=== PATIENT | female | born 1990 | race African-American/Black ===

== ENCOUNTER 2017-07-09 21:28 | Emergency (ER) | payer BC, SELFPAY ==
[2017-07-10] MEDS ORDERED: Ibuprofen 200 MG TAB ONE (00:48)
[2017-07-10] MEDS ORDERED: AMOXicillin 250 MG CAP ONE (00:48)
== END 2017-07-10 00:55 | disposition home or self-care (01) ==
LOC: ERS 21:28
DX: J03.00 Acute streptococcal tonsillitis, unspecified (principal)
CPT/HCPCS: 87081; 87430; 99283

== ENCOUNTER 2017-11-30 03:00 | Emergency (ER) | payer BC, SELFPAY | END 2017-11-30 04:06 | disposition home or self-care (01) | LOC: ERS 03:00 | DX: S02.5XXA Fracture of tooth (traumatic), initial encounter for closed fracture (principal); X58.XXXA Exposure to other specified factors, initial encounter | CPT/HCPCS: 99282 ==

== ENCOUNTER 2018-03-02 18:01 | Emergency (ER) | payer BC, MEDICAID ==
[2018-03-02 18:33] LABS: Bilirubin Negative (Negative); Blood, Urine Small (Negative); Clarity CLOUDY (Clear); Glucose, Urine (Dipstick) Negative (Negative); Leukocyte Moderate (Negative); Nitrite Positive (Negative); Protein, Urine (Dipstick) Trace mg/dL (Neg-Trace); Specific Gravity, Urine 1.025 (1.002-1.036); pH, Urine 6.5 (5.0-9.0)
[2018-03-02 18:35] LABS: Bacteria/HPF 4+ HPF (None Seen); Pathc Cast-AUWi Flag 0.72 (0-2.49); Squamous Epithelial 0-3 HPF (0-3)
[2018-03-02 18:36] LABS: Hyaline Casts/LPF 0-3 HYALINE CAST LPF (0-3 Hyaline)
[2018-03-05 04:21] LABS: Chlamydia by PCR Not Detected (NotDetected); GC by PCR Not Detected (NotDetected)
== END 2018-03-02 20:19 | disposition home or self-care (01) ==
LOC: ERS 18:01
DX: B37.3 Candidiasis of vulva and vagina (principal); N30.00 Acute cystitis without hematuria
CPT/HCPCS: 81003; 81015; 87480; 87491; 87510; 87591; 87660; 99284

== ENCOUNTER 2018-12-17 06:34 | Emergency (ER) | payer MEDICAID, OTHER ==
[2018-12-17 07:11] LABS: #Eosinphils 0.1 thou/uL (0.0-0.7); #Lymphocytes 2.1 thou/uL (1.20-3.40); #Monocytes 0.6 thou/uL (0.11-0.59); #Neutrophils 7.3 thou/uL (1.40-6.50); %Basophils 0.5 % (0.0-1.0); %Eosinophils 0.5 % (0.0-10.0); %Lymphocytes 21.1 % (21.0-51.0); %Neutrophils 71.9 % (42.0-75.0); Hemoglobin 14.7 g/dL (12.0-16.0); Mean Corpuscular HGB CONC 33.5 g/dL (32.0-36.0); Mean Corpuscular Hemoglobin 28.9 pg (27.0-31.0); Mean Corpuscular Volume 86.1 fL (78.0-98.0); Mean Platelet Volume 9.9 fL (7.4-10.4); Platelet Count 140 thou/uL (130-400); RBC Distribution Width 12.4 % (11.5-14.5); White Blood Cell (WBC) Count 10.1 thou/uL (4.8-10.8)
[2018-12-17] MEDS ORDERED: Acetaminophen 500 MG TAB ONE (07:13)
[2018-12-17] MEDS ORDERED: Metoclopramide HCl 10 MG/2 ML VIAL ONE (07:13)
[2018-12-17] MEDS ORDERED: diphenhydrAMINE 50 MG/ML VIAL ONE (07:13)
[2018-12-17 07:20] LABS: Bilirubin Small (Negative); Blood, Urine Large (Negative); Clarity CLOUDY (Clear); Glucose, Urine (Dipstick) Negative (Negative); Leukocyte Small (Negative); Nitrite Negative (Negative); Protein, Urine (Dipstick) Trace mg/dL (Neg-Trace); Urobilinogen 0.2 mg/dL (0.2-1.0); pH, Urine 5.5 (5.0-9.0)
[2018-12-17 07:22] LABS: Bacteria/HPF None Seen HPF (None Seen); Hyaline Casts/LPF 4-6 HYALINE CAST LPF (0-3 Hyaline); Pathc Cast-AUWi Flag 1.08 (0-2.49); RBC/HPF 0-3 HPF (0-3)
[2018-12-17 07:24] LABS: Yeast-AUWi Flag 68.6 (0-25.0)
[2018-12-17 07:35] LABS: Yeast-All Forms None Seen HPF (None Seen)
[2018-12-17 07:35] LABS: ALT (SGPT) 11 U/L (8-55); AST (SGOT) 13 U/L (5-34); Albumin 4.2 g/dL (3.5-5.0); Alkaline Phosphatase 63 U/L (40-150); Anion Gap 11 mmol/L (10-20); BUN (Urea Nitrogen) 10 mg/dL (7.0-18.7); Bilirubin, Total 0.5 mg/dL (0.2-1.2); Calc. Creatinine Clearance 0 mL/min (70-130); Calcium 9.8 mg/dL (7.8-10.44); Carbon Dioxide 24 mmol/L (22-29); Chloride 105 mmol/L (98-107); Estimated GFR-MDRD Greater than 90; Globulin 3.2 g/dL (2.4-3.5); Glucose 90 mg/dL (70-105); Potassium 3.7 mmol/L (3.5-5.1); Protein, Total 7.4 g/dL (6.0-8.3); Sodium 136 mmol/L (136-145)
--- NOTE | 2018-12-17 08:55 | ULT ---
PELVIC ULTRASOUND: Transabdominal and endovaginal ultrasound of the pelvis performed. INDICATION: Vaginal bleeding. FINDINGS: There is a viable intrauterine . A pole is identified. The crown-rump length indicat es a 9-week 2-day gestation. Gestational sac measurements indicate an 8-week 6-day gestation. [place] ultrasound age is 9 weeks 0 days. Yolk sac is identified. The heart rate is recorded at 168 b.p.m. No evidence of subchorionic hemorrhage. No free fluid. Neither maternal ovary identified. IMPRESSION: A viable intrauterine with gestational age by ultrasound 9 weeks 0 days. The maternal ovar ies are not identified. POS: [facility]
== END 2018-12-17 08:57 | disposition home or self-care (01) ==
LOC: ERS 06:34
DX: O20.0 Threatened abortion (principal); Z3A.09 9 weeks gestation of pregnancy
CPT/HCPCS: 36415; 76856; 80053; 81003; 81015; 84702; 85025; 86900; 86901; 96365; 96375; J1200; J2765

== ENCOUNTER 2019-04-14 03:59 | Day surgery (SDC) | payer OTHER ==
[2019-04-14 04:35] VITALS: BP 110/65; TEMP 98.1; BMI 29.2
[2019-04-14] MEDS ORDERED: diphenhydrAMINE 25 MG CAP PO SCH (05:00)
--- NOTE | 2019-04-14 05:09 | PDOC.EVN ---
Event Note - Event Note Event Note: OBGYN Faculty History and Physical Attestation: Patient of the clinic Time: 0500 CC: N/V, "migraine", urinary frequency HPI: 28 yo at 25 weeks 6 days here for above complaints, HX migraines. Some n/v as well. No VB, no LOF. Some urinary frequency. Past HX Chlamydia and HSV. Please see full H&P by resident I have seen and evaluated the patient and agree with plan for : 1. IVF hydratioin 2. Benadryl and reglan for MARINO 3. CBC and CMP 4. cath UA 5. Vitals WNL
--- NOTE | 2019-04-14 05:11 | PDOC.LDHP ---
Labor and Delivery H&P Chief complaint: abdominal pain, other (Migraine and back pain) HPI: Pt is a at 25 wks and 6 days determined by US at 5wks. 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 She has also had a migraine that has been constant for the last two days with blurry vision, nausea, and vomiting x2 episodes today. She has no previous history of migraines. She tried to take Tylenol as well as sleep and eat but nothing has alleviated the migraine. She has had urinary urgency, frequency, and dysuria for the past 3 days. She says her urine has been intermittently dark but has had no odor to it. She said she has noticed swelling in her legs for the past 2 wks. She has had no bleeding or loss of fluid, but she did have spotting during the first 3 months of this . She says baby is moving normally. Current gestational age (weeks): 25 (6 days) Due date: 07/22/19 Dating criteria: first trimester ultrasound (@ 5 wks 5 days) Grav: 3 Para: 2 OB History Details: She has had 2 vaginal deliveries at term with no complications. This she had Chlamydia which was treated and she has a history of Herpes, but she has not had an outbreak. She said all her labs came back normal for this and she is seen at the [facility]. Current complications: none Abnormal US findings: No Past Medical History: None Current medications: pre-chio vitamins Previous surgical history: none Allergies/Adverse Reactions: Allergies Allergy/AdvReac Type Severity Reaction Status Date / Time No Known Allergies Allergy Unverified 04/14/19 04:26 Social history: none - Physical Exam General: other (She looks like she is in slight distress holding her head.) Heart: RRR Lungs: CTAB Abdomen: other (No CVA tenderness. Lower back pain that is para-spinal just above the iliac spine. Supra-pubic pain.) Extremeties: trace edema FHT: category 1, variability present [place] contractions every: None - Vaginal Exam cm dilated: 0 Effacement: 0% Station: -3 - OB Labs Blood type: unknown RH: unknown Antibody Screen: unknown HIV: unknown RPR: unknown HEPSAg: unknown 1 hour GCT: unknown GBS: unknown Urine drug screen: not done - Assessment @ 25w6d presents with migraine with blurry vision, nausea, and vomiting, low back and supra-pubic pain, and dysuria, urgency, and frequency. - Plan -: -Migraine with vision changes nausea & vomiting: Will check a CBC and BMP. Give 1L of LR as well as Reglan and Benadryl. -Dysuria, urgency, and frequency: Will obtain a Cath UA and evaluate for UTI. -Low back pain and supra-pubic pressure: Will r/o U.T.I. with UA & CBC, and then recommend abdominal support for gravid abdomen.
[2019-04-14] MEDS ORDERED: Metoclopramide HCl 10 MG TAB PO SCH (05:15)
[2019-04-14] MEDS ORDERED: Lactated Ringer's 1,000 ML IV SCH (05:15)
[2019-04-14] MEDS ORDERED: Metoclopramide HCl 10 MG/2 ML VIAL IVP SCH (05:45)
[2019-04-14] MEDS ORDERED: diphenhydrAMINE 50 MG/ML VIAL IVP SCH (05:45)
[2019-04-14] MEDS ORDERED: diphenhydrAMINE 25 MG in Sodium Chloride 0.9% 50 ML IVPB ONE (05:45)
[2019-04-14 06:07] LABS: ALT (SGPT) 15 U/L (8-55); AST (SGOT) 20 U/L (5-34); Albumin 3.3 g/dL (3.5-5.0); Alkaline Phosphatase 73 U/L (40-150); Anion Gap 13 mmol/L (10-20); BUN (Urea Nitrogen) 7 mg/dL (7.0-18.7); Bilirubin, Total 0.3 mg/dL (0.2-1.2); Calc. Creatinine Clearance 166 mL/min (70-130); Calcium 8.2 mg/dL (7.8-10.44); Carbon Dioxide 19 mmol/L (22-29); Chloride 107 mmol/L (98-107); Estimated GFR-MDRD Greater than 90; Glucose 84 mg/dL (70-105); Potassium 3.7 mmol/L (3.5-5.1); Protein, Total 6.3 g/dL (6.0-8.3); Sodium 135 mmol/L (136-145)
--- NOTE | 2019-04-14 06:22 | PDOC.EVN ---
Event Note - Event Note Event Note: CMP reviewed and determined to be WNL. Continue to monitor for resolution of headache. Urine studies and CBC still pending.
[2019-04-14 06:35] LABS: #Eosinphils 0.1 thou/uL (0.0-0.7); #Lymphocytes 1.7 thou/uL (1.20-3.40); #Monocytes 0.5 thou/uL (0.11-0.59); #Neutrophils 5.7 thou/uL (1.40-6.50); %Basophils 0.1 % (0.0-1.0); %Eosinophils 1.1 % (0.0-10.0); %Lymphocytes 21.2 % (21.0-51.0); %Monocytes 6.5 % (0.0-10.0); %Neutrophils 71.1 % (42.0-75.0); Hemoglobin 12.8 g/dL (12.0-16.0); Mean Corpuscular HGB CONC 33.5 g/dL (32.0-36.0); Mean Corpuscular Hemoglobin 29.9 pg (27.0-31.0); Mean Corpuscular Volume 89.4 fL (78.0-98.0); Mean Platelet Volume 9.7 fL (7.4-10.4); Platelet Count 114 thou/uL (130-400); Platelet Morphology Comment Appears Decreased; RBC Distribution Width 13.2 % (11.5-14.5); Red Blood Cell (RBC) Count 4.27 mill/uL (4.20-5.40)
[2019-04-14 07:27] LABS: Bilirubin Negative (Negative); Blood, Urine Negative (Negative); Glucose, Urine (Dipstick) Negative (Negative); Leukocyte Negative (Negative); Nitrite Negative (Negative); Protein, Urine (Dipstick) Negative (Neg-Trace); Urobilinogen 0.2 mg/dL (Less than 2)
[2019-04-14 07:28] LABS: Clarity Clear (Clear)
--- NOTE | 2019-04-14 08:07 | PDOC.EVN ---
Event Note - Event Note Event Note: Inicidental low mild platlets but over 100K...recheck in 2 weeks Awaiting UA
--- NOTE | 2019-04-14 08:23 | PDOC.OBTPN ---
FMR OB Triage PN:Sub - Interval History Chief Complaint: Abdominal pain, MARINO, urinary symptoms, Nausea Interval History: Mrs. Kline states her headache/nausea has resolved with meds/fluids. R OB Triage PN:Obj - Maternal Vital signs: BP: [110/65] HR: [80] RR: [99] Tmax: [98.1] Pox: [99]% on [room air] Wt: [ 77.1 kg] R OB Triage PN:Exam - Physical Exam General: NAD, awake, alert and oriented HEENT: EOMI Neck: supple, trachea midline Heart: RRR, normal S1/S2, pulses present General: CTAB, no respiratory distress, good air movement Abdomen: soft, gravid, bowel sound present Musculoskeletal: pulses present Neurological: cranial nerves II through XII intact, no focal deficit Skin: no rash Lymphatic: no unusual bruising or bleeding FMR OB Triage PN:Data - Labs Lab results: Laboratory Results - last 24 hr 04/14/19 04/14/19 04/14/19 05:30 05:30 06:23 WBC 8.0 RBC 4.27 Hgb 12.8 Hct 38.1 MCV 89.4 MCH 29.9 MCHC 33.5 RDW 13.2 Plt Count 114 L MPV 9.7 Neutrophils % 71.1 Lymphocytes % 21.2 Monocytes % 6.5 Eosinophils % 1.1 Basophils % 0.1 Neutrophils # 5.7 Lymphocytes # 1.7 Monocytes # 0.5 Eosinophils # 0.1 Basophils # 0.0 Plt Morphology Comment Appears Decreased L Sodium 135 L Potassium 3.7 Chloride 107 Carbon Dioxide 19 L Anion Gap 13 BUN 7 Creatinine 0.61 Estimated GFR (MDRD) Greater than 90 Glucose 84 Calcium 8.2 Total Bilirubin 0.3 AST 20 ALT 15 Alkaline Phosphatase 73 Serum Total Protein 6.3 Albumin 3.3 L Globulin 3.0 Albumin/Globulin Ratio 1.1 L Urine Color Yellow Urine Clarity Clear Urine pH 7.0 Ur Specific Jenner 1.020 Urine Protein Negative Urine Glucose (UA) Negative Urine Ketones Negative Urine Blood Negative Urine Nitrite Negative Urine Bilirubin Negative Urine Urobilinogen 0.2 Ur Leukocyte Esterase Negative R OB Triage PN:A/P - Problem List (1) Headache Status: Acute Code(s): R51 - HEADACHE (2) Nausea Status: Acute Code(s): R11.0 - NAUSEA (3) Urinary tract infection symptoms Status: Acute Code(s): R39.9 - UNSP SYMPTOMS AND SIGNS INVOLVING THE GENITOURINARY SYSTEM (4) Pelvic pain Status: Acute Code(s): R10.2 - PELVIC AND PERINEAL PAIN Disposition: # Headache/Nausea Resolved with 1 L fluids, reglan, and benadryl. Will d/c with reglan and benadryl. No focal deficits. # Thrombocytopenia Incidently found. Platelets 114. - follow up with clinic in 1-2 weeks for repeat. # Pelvic Pain - likely secondary to round ligament pain # Urinary Symptoms UA negative. Will not treat. Dispo: discharge Discussion: Date/Time: 04/14/19820 This H&P was discussed with [] and [] who agree with the above documentation and plan.
--- NOTE | 2019-04-14 08:31 | PDOC.EVN ---
Event Note - Event Note Event Note: Patient with incidental thrombocytopenia with platelets 114 on CBC today. CMP and UA WNL. Will notify PNC to repeat CBC on 04/29 at patient's next appointment. Patient's headache improved with reglan and benadryl. Plan for d/c home. Diane Sosa, DO PGY-3
--- NOTE | 2019-04-14 17:29 | DIS ---
DATE OF ADMISSION: 04/14/2019 DATE OF DISCHARGE: 04/14/2019 RESIDENT: Olman Warner DO DISCHARGE ATTENDING: Aaron Bass MD CONSULTS: None. PROCEDURES: None. PRIMARY DIAGNOSES: 1. Migraine. 2. Nausea. 3. Urinary symptoms. 4. Low back pain and suprapubic pressure. DISCHARGE MEDICATIONS: 1. vitamins 1 tablet p.o. daily. 2. Acetaminophen 650 p.o. q.6 p.r.n. 3. Benadryl 25 mg p.o. q.6. 4. Metoclopramide 10 mg p.o. q.i.d. HPI/HOSPITAL COURSE: Ms. Curtis Kline is a 28-year-old G3, P2 at 25 weeks and 6 days, determined by ultrasound of 5 weeks. 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 At the same time, she had a migraine that has been consulted for the last 2 days with blurry vision, nausea, and vomiting x2 episodes. She had no previous history of migraines. She tried to take Tylenol for migraines, but this did not alleviate the pain. She also stated that she has increased urinary frequency, urgency, and dysuria for the last 3 days. Her urine had no odor, but was intermittently dark. She also noted she had swelling in her legs for the past 2 weeks. She denied bleeding, loss of fluid. She states that the baby is moving well. She was monitored through the morning and given 1 L of fluids, Reglan, and Benadryl to see if this would alleviate her symptoms. By discharge, her headache and nausea had improved to the point she felt comfortable, being discharged. She also had a UA due to her urinary symptoms, which revealed no bacteria, urinary leukocyte estrace, blood, or nitrites. CBC within normal limits other than an incidental findings of platelet count of 114. We did not have her recent labs on hand, so we encouraged her to follow up with clinic in 1 to 2 weeks, 3 drop for her thrombocytopenia. She is also experiencing some pelvic pain, which is likely secondary to round ligament pain. She denies any vaginal discharge, vaginal bleeding, or her water breaking. DISCHARGE INSTRUCTIONS: 1. Location: [facility]. 2. Diet: No restrictions. 3. Activity: Ad hayden. 4. Followup: With clinic in 1 to 2 weeks for repeat CBC checking on thrombocytopenia. Job ID: [id number]
== END 2019-04-14 08:39 | disposition home or self-care (01) ==
LOC: L&D/OP 03:59
PROVIDERS: ATTEND Obstetrics & Gynecology
DX: O99.352 Diseases of the nervous system complicating pregnancy, second trimester (principal); G43.909 Migraine, unspecified, not intractable, without status migrainosus; O21.2 Late vomiting of pregnancy; O99.89 Other specified diseases and conditions complicating pregnancy, childbirth and the puerperium; R10.2 Pelvic and perineal pain; M54.5 Low back pain; R30.0 Dysuria; R35.0 Frequency of micturition; R39.15 Urgency of urination; O99.112 Other diseases of the blood and blood-forming organs and certain disorders involving the immune mechanism complicating pregnancy, second trimester; D69.6 Thrombocytopenia, unspecified; Z3A.25 25 weeks gestation of pregnancy
CPT/HCPCS: 36415; 51701; 80053; 81003; 85025; 96360; 96361; 96375; 99283; J1200; J2765; J8597

== ENCOUNTER 2019-04-17 00:27 | Day surgery (SDC) | payer OTHER ==
[2019-04-17 01:03] VITALS: BMI 29.2
--- NOTE | 2019-04-17 01:23 | PDOC.LDHP ---
Labor and Delivery H&P Chief complaint: contractions, other (vomiting) HPI: Ms. Kline is a 28yo who presents to L&D for nausea, vomiting, headache, and painful contractions. Her symptoms began this morning with mild cramping/contractions in the lower abdomen that were not particularly painful. She thought they were Bailey-Nunes so she took a bath and tried to hydrate with water. She states that she began feeling nauseous mid morning and also developed a headache. At noon she began vomiting, took Tylenol for her headache and took a nap. At 5pm she was awakened by painful contractions and more nausea and vomiting. She monitored her contractions at home and around 8pm began noting that they were coming every 3-4 minutes. She decided to come to the hospital later in the evening due to worsening pain with contractions and inability to keep water down. She has noted discharge and states that sometimes it feels like she is "peeing herself", but it is not enough to necessitate a pad. She denies scotoma, photospia, RUQ pain, numbness, tingling, syncope, vaginal bleeding, or gush of fluid. Current gestational age (weeks): 26 (2 days) Due date: 07/22/19 Dating criteria: first trimester ultrasound (@5.5) Grav: 3 Para: 2 OB History Details: She has had 2 w/o complications. This has been complicated by chlamydia for which she has been treated. She has a history of herpes, but denies current or recent outbreak. Current complications: none Past Medical History: None Current medications: pre-chio vitamins Allergies/Adverse Reactions: Allergies Allergy/AdvReac Type Severity Reaction Status Date / Time No Known Allergies Allergy Verified 04/17/19 00:57 - Physical Exam Vital signs reviewed and normal: yes (BP 108/68, HR 86, RR 18, Temp 97.9F) General: NAD, resting Heart: RRR Lungs: CTAB Abdomen: other (Tender across lower abdomen) Extremeties: no edema FHT: category 1 (FHTs in the 150s-170s, good variability, no decelerations.) [place] contractions every: 5-6 min - Vaginal Exam cm dilated: 0 Effacement: 0% - OB Labs Blood type: unknown RH: unknown Antibody Screen: unknown HIV: unknown RPR: unknown HEPSAg: unknown Urine drug screen: not done - Assessment 1. 28yof with nausea, vomiting, headache and contractions, suspect gastroenteritis. - Plan -: - Rule out labor: FFN, Amnisure, and US cervical length. Reassured by cervical check of 0cm. - Increased vaginal discharge: VP3 ordered - Nausea/Vomiting: IV Zofran ordered - tachycardia: Ordered IV NS 1L bolus. Will monitor patient for closely for FHTs, contractions, until she can tolerate PO fluids. Addendum - Attending - Attending Attestation Date/Time: 04/17/19 1354 I personally evaluated the patient and discussed the management with Dr. Kaur. I agree with the History, Examination, Assessment and Plan documented above.
[2019-04-17] MEDS ORDERED: hydrALAZINE 20 MG/ML VIAL SLOW IVP PRN (02:04)
[2019-04-17] MEDS ORDERED: Ondansetron PF 4 MG/2 ML Vial IVP PRN (02:21)
[2019-04-17] MEDS ORDERED: Sodium Chloride 0.9% 1,000 ML IV SCH ×3 (02:30→03:00)
[2019-04-17 02:40] LABS: Amnisure Test No Membranes Rupture (No Rupture)
[2019-04-17 02:41] LABS: Amnisure Internal Control QC ACCEPTABLE (ACCEPTABLE)
[2019-04-17 02:57] LABS: FFN Internal QC Analyzer PASS (PASS); FFN Internal QC Cassette PASS (PASS); Fetal Fibronectin Negative (Negative)
--- NOTE | 2019-04-17 03:02 | PDOC.EVN ---
Event Note - Event Note Event Note: Per US tech - cervical length is 3.2cm with no funneling. FFN negative, amnisure negative. Pt getting 1L fluid bolus at this time. VP3 pending. Will monitor for improvement in ctx Addendum - Attending - Attending Attestation Date/Time: 04/17/19 0711 I personally evaluated the patient and discussed the management with Dr. Conn. I agree with the Assessment and Plan documented above.
--- NOTE | 2019-04-17 03:58 | PDOC.EVN ---
Event Note - Event Note Event Note: Patient reports she is feeling better, no longer nauseous or having contractions. The FFN and amnisure were both negative, cervix is 3.2cm without funneling. VP3 pending. FHTs 150s moderate variability. F/u PNC appt scheduled. d/c home Addendum - Attending - Attending Attestation Date/Time: 04/17/19 0712 I personally evaluated the patient and discussed the management with Dr. Kaur. I agree with the Assessment and Plan documented above.
--- NOTE | 2019-04-17 07:33 | ULT ---
OB ULTRASOUND LIMITED: INDICATION: Evaluation of cervical length. FINDINGS: Redemonstrated cervical canal is approximately 3.2 cm in length. The fetus is demonstrated in a aram ch lie. cardiac activity is documented at 160 b.p.m. IMPRESSION: Live intrauterine gestation. Cervical length of 3.2 cm. POS: [facility]
== END 2019-04-17 04:33 | disposition home or self-care (01) ==
LOC: L&D/OP 00:27
PROVIDERS: ATTEND Obstetrics & Gynecology
DX: O21.2 Late vomiting of pregnancy (principal); O99.89 Other specified diseases and conditions complicating pregnancy, childbirth and the puerperium; R51 Headache; R10.30 Lower abdominal pain, unspecified; N89.8 Other specified noninflammatory disorders of vagina; O36.8320 Maternal care for abnormalities of the fetal heart rate or rhythm, second trimester, not applicable or unspecified; Z3A.26 26 weeks gestation of pregnancy
CPT/HCPCS: 76815; 82731; 84112; 87480; 87510; 87660; J2405

== ENCOUNTER 2019-05-24 09:58 | Day surgery (SDC) | payer OTHER ==
[2019-05-24] MEDS ORDERED: hydrALAZINE 20 MG/ML VIAL SLOW IVP PRN (10:43)
[2019-05-24 10:47] VITALS: BMI 25.3
--- NOTE | 2019-05-24 10:47 | PDOC.FPROB ---
FMR OB H&P: HPI - History of Present Illness Chief Complaint: Spotting, back pain Indentification: 28 year old at 32.3 wks History of Present Illness: 28 year old at 32.3 wks bu 6.3wk US presents for spotting 3x intermittently. She notes it occurred while wiping once on Saturday and twice today. Endorses usual mucous vaginal discharge, no change in consistency. Intermittant contractions, good movement, no LOF. States she had intercourse with the FOB last Saturday and had not had any intercourse for months prior. She did not use protection and unsure of STD status of partner. She also endorses lower back pressure, partially relieved with Tylenol. Also endorses intermittant MARINO''s throughout located behind the eyes, relieved with bendryl and Tylenol. Primary Care Physician: BEN Samuel FMR OB H&P: Current - Care : 6 Para: 2031 Gestational age: 32.3 Due date: 07/16/19 Dating Criteria: US at 6.3 Course/Complications: Chlamydia during first trimester, HECTOR negative. - OB Labs Blood type: O RH: positive Antibody Screen: negative HIV: negative RPR: negative HepBsAg: negative Rubella: immune Quad screen: negative Gonorrhea: negative Chlamydia: negative 1 hour gtt: passed H&H: 14.3/42.5 Platelets: 153 FMR OB H&P: History - Past Medical History PMH: No significant PMHx outside of . - OB History OB History: . 2 spontaneous abortions, 1 induced. 2 Living children ages 11 and 8 born at 39 and 40 wks respectively via without complications or NICU stay. 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 Chlamydia during first trimester of this . HECTOR negative. Unsure of partner's status. - Surgical History Sx History: None - Social History Social History: No EtOH, Drugs, or tob. - Family History Family History: Aunt with Sickle Cell disease. Mom with trait. Personally negative for trait. No known family history of complications. FMR OB H&P: Medications - Current Home Medications: Medication Instructions Recorded Confirmed Type Acetaminophen [Tylenol Regular 650 mg PO Q6HR PRN 04/14/19 04/17/19 History Strength] 21/Iron Fu/Folic Acid 1 tablet PO DAILY 04/14/19 04/17/19 History [ Complete Caplet] Metronidazole [metroNIDAZOLE] 500 mg PO Q12HR #14 tab 04/17/19 Rx Allergies/Adverse Reactions: Allergies Allergy/AdvReac Type Severity Reaction Status Date / Time No Known Allergies Allergy Verified 04/17/19 00:57 FMR OB H&P: ROS - Review of Systems General: denies: fever/chills, night sweats, fatigue, recent trauma Eyes: denies: eye pain, vision changes, double vision ENT: denies: nasal congestion, rhinorrhea, sinus pain/pressure, sore throat Cardiovascular: reports: edema (minimal, for past week, worse at end of day.). denies: chest pain, palpitation Respiratory: denies: cough, congestion, shortness of breath Gastrointestinal: denies: abdominal pain, bloating, cramping, nausea, vomiting Genitourinary (Female): reports: vaginal discharge (normal mucous), vaginal bleeding (minimal spotting per HPI), contractions (infrequent), vaginal pressure. denies: incontinence, dysuria, hematuria, vaginal pain Musculoskeletal: reports: pain (lower back pain) Neurologic: denies: numbness Integumentary: denies: rash FMR OB H&P: Vital Signs - Heart Tones Baseline: 160 Variability: moderate Acceleration: present Deceleration: absent Category: category 1 (reactive) [place] contractions every: infrequent FMR OB H&P: Physical Exam - Physical Exam General: NAD, awake, alert and oriented HEENT: MMM, no scleral icterus Neck: supple, trachea midline Chest: non-tender to palpation Heart: RRR, normal S1/S2, no murmurs/rubs/gallops, pulses present, no edema General: CTAB, no respiratory distress, good air movement, no rales/rhonchi, no wheezing Abdomen: soft, gravid, non-tender, bowel sound present Neurological: sensation to pain,touch and proprioception grossly normal, no focal deficit Skin: no rash FMR OB H&P: A/P - Problem List (1) Vaginal spotting Current Visit: Yes Status: Acute Code(s): N93.9 - ABNORMAL UTERINE AND VAGINAL BLEEDING, UNSPECIFIED (2) Back pain affecting in third trimester Current Visit: Yes Status: Acute Code(s): O99.89 - OTH DISEASES AND CONDITIONS COMPL PREG/CHLDBRTH; M54.9 - DORSALGIA, UNSPECIFIED (3) Intrauterine Current Visit: Yes Status: Acute Code(s): Z34.90 - ENCNTR FOR SUPRVSN OF NORMAL , UNSP, UNSP TRIMESTER Disposition: Pt not in labor. Reactive strip. UA clean. Will obtain G/C and Trich testing and recommend f/u for routine care at [facility]. Will notify pt if any abnormal results on swab. Labor precautions given. Discussion: 28yo AAF @ 32.3 by 6.3wk US presenting with vaginal spotting and lower back pain 1. Vaginal spotting - H/o chlamydia in first trimester, HECTOR negative - Recently sexually active with FOB last Saturday, no intercourse in months prior, unsure of STD status of partner - Dried blood with wiping, no LOF, consistent contractions, or changes in vaginal discharge - Good movement, strip reactive - UA negative. - Likely 2/2 vaginal trauma from intercourse vs normal third trimester spotting. Will check G/C and Trich per patient concern. 2. Lower back pain - Present for past week or more - Tylenol with minimal relief - No conctrations or loss of fluid - Recommend heating pad and Tylenol for pain relief 3. IUP - 32.3 wks by 6.3wk US - Continue routine care with [facility] - Dr. Samuel .
[2019-05-24 11:26] LABS: Bilirubin Negative (Negative); Blood, Urine Negative (Negative); Glucose, Urine (Dipstick) Negative (Negative); Leukocyte Negative (Negative); Nitrite Negative (Negative); Protein, Urine (Dipstick) Negative (Neg-Trace); Urobilinogen 0.2 mg/dL (Less than 2)
[2019-05-24 11:30] LABS: Clarity Clear (Clear)
[2019-05-24 14:07] LABS: Reference Lab Name LABCORP
[2019-05-24 14:08] LABS: Ref Lab Test Ordered CT/GC/TRICH
== END 2019-05-24 13:40 | disposition home health service (06) ==
LOC: L&D/OP 09:58
PROVIDERS: ATTEND Student in an Organized Health Care Education/Training Program
DX: O26.853 Spotting complicating pregnancy, third trimester (principal); O99.89 Other specified diseases and conditions complicating pregnancy, childbirth and the puerperium; M54.5 Low back pain; Z3A.32 32 weeks gestation of pregnancy; Z87.59 Personal history of other complications of pregnancy, childbirth and the puerperium
CPT/HCPCS: 81003

== ENCOUNTER 2019-06-03 17:22 | Observation (INO) | payer OTHER ==
[2019-06-03 18:32] VITALS: BMI 31.8
[2019-06-03] MEDS ORDERED: Ondansetron PF 4 MG/2 ML Vial IVP PRN (19:31)
[2019-06-03] MEDS ORDERED: Calcium Gluc 4.6 MEQ/10 ML (100 MG/ML) SLOW IVP PRN (19:31)
[2019-06-03] MEDS ORDERED: Ondansetron ODT 4 MG TAB PO PRN (19:31)
[2019-06-03] MEDS: Famotidine 20 MG TAB PO SCH (20:11)
[2019-06-03] MEDS: Famotidine/PF 20 mg/2ml Vial SLOW IVP SCH (20:12)
[2019-06-03] MEDS: Acetaminophen 325 MG TAB PO PRN (20:12)
[2019-06-03 20:31] LABS: #Eosinphils 0.1 thou/uL (0.0-0.7); #Lymphocytes 2.9 thou/uL (1.20-3.40); #Monocytes 0.7 thou/uL (0.11-0.59); #Neutrophils 10.4 thou/uL (1.40-6.50); %Basophils 0.1 % (0.0-1.0); %Eosinophils 0.5 % (0.0-10.0); %Lymphocytes 20.5 % (21.0-51.0); %Neutrophils 73.9 % (42.0-75.0); Hemoglobin 13.6 g/dL (12.0-16.0); Mean Corpuscular HGB CONC 34.5 g/dL (32.0-36.0); Mean Corpuscular Hemoglobin 30.4 pg (27.0-31.0); Mean Corpuscular Volume 88.3 fL (78.0-98.0); Mean Platelet Volume 9.7 fL (7.4-10.4); Platelet Count 121 thou/uL (130-400); RBC Distribution Width 12.9 % (11.5-14.5); Red Blood Cell (RBC) Count 4.47 mill/uL (4.20-5.40)
[2019-06-03 20:55] LABS: ALT (SGPT) 21 U/L (8-55); AST (SGOT) 30 U/L (5-34); Albumin 3.3 g/dL (3.5-5.0); Alkaline Phosphatase 122 U/L (40-150); Anion Gap 14 mmol/L (10-20); BUN (Urea Nitrogen) 11 mg/dL (7.0-18.7); Bilirubin, Total 0.3 mg/dL (0.2-1.2); Calc. Creatinine Clearance 167 mL/min (70-130); Calcium 8.9 mg/dL (7.8-10.44); Carbon Dioxide 20 mmol/L (22-29); Chloride 107 mmol/L (98-107); Estimated GFR-MDRD Greater than 90; Globulin 2.7 g/dL (2.4-3.5); Glucose 83 mg/dL (70-105); Potassium 3.6 mmol/L (3.5-5.1); Sodium 137 mmol/L (136-145); Uric Acid 5.1 mg/dL (2.6-6.0)
--- NOTE | 2019-06-03 21:28 | PDOC.FPROB ---
FMR OB H&P: HPI - History of Present Illness Chief Complaint: elevated BP's, SOB, swelling History of Present Illness: 28 y/o at 34.0 wks presents via direct admit from Dr. Corbin at [facility], for Pre-Eclampsia workup. The pt had elevated BP's, edema in her hands and feet, and SOB worse with exertion of walking about 50 feet for the past week. She states that at 28 wks she was worked up and found to have low platelets, when she was evaluated for migraine headaches and contractions. The pt had an ultrasound yesterday that showed poyhydramnios. Today she c/o cramping/contraction like pain that is present over her lower abdomen. Pt denies any LOF, vaginal bleeding. Pt c/o yellow vaginal discharge and some vaginal spotting present X1 week ago, that is currently not present. Pt if feeling the baby move "constantly." Whe she is SO she also becomes dizzy, denies any LOC. c/o heart burn and nausea, denies any v/d. c/o MARINO 7/10 in intensity behind the right eye. Denies current scotomas, but states she has had these before. Primary Care Physician: at [facility] FMR OB H&P: Current - Care : 6 Para: 2 Gestational age: 34.0 Course/Complications: elevated BP's FMR OB H&P: History - Past Medical History PMH: migraines - OB History OB History: X2 miscarriage X1 @28 wks during this pt was found to have low platelets, when worked up for migraines and contractions. - Social History Social History: denies tobacco, etoh or drug use. FMR OB H&P: Medications - Current Home Medications: Medication Instructions Recorded Confirmed Type Acetaminophen [Tylenol Regular 650 mg PO Q6HR PRN 04/14/19 04/17/19 History Strength] 21/Iron Fu/Folic Acid 1 tablet PO DAILY 04/14/19 04/17/19 History [ Complete Caplet] Metronidazole [metroNIDAZOLE] 500 mg PO Q12HR #14 tab 04/17/19 Rx Allergies/Adverse Reactions: Allergies Allergy/AdvReac Type Severity Reaction Status Date / Time No Known Allergies Allergy Verified 04/17/19 00:57 FMR OB H&P: ROS - Review of Systems General: reports: fatigue. denies: fever/chills, weight/appetite/sleep changes Eyes: reports: eye pain, vision changes, scotomas. denies: double vision ENT: denies: nasal congestion, rhinorrhea Cardiovascular: reports: edema. denies: chest pain, palpitation Respiratory: reports: shortness of breath, exercise intolerance. denies: cough Gastrointestinal: reports: abdominal pain, cramping, nausea, constipation. denies: vomiting, diarrhea Genitourinary (Female): reports: vaginal discharge, vaginal bleeding, contractions. denies: incontinence Musculoskeletal: reports: swelling Neurologic: reports: weakness, headache. denies: syncope, seizures Hematologic/Lymphatic: denies: prolonged or excessive bleeding FMR OB H&P: Vital Signs - Maternal Vital signs: Vital Signs - First Documented Temp Pulse Resp BP Pulse Ox 97.9 F 80 18 126/76 98 06/03/19 17:45 06/03/19 17:45 06/03/19 17:45 06/03/19 17:45 06/03/19 17:45 FMR OB H&P: Physical Exam - Physical Exam General: NAD, awake, alert and oriented HEENT: normocephalic and atraumatic, PERRLA, EOMI, MMM, conjunctiva clear, no scleral icterus, grossly normal vision, grossly normal hearing, oropharynx clear , good dention Neck: supple, FROM, trachea midline, no LAD, no JVD Chest: non-tender to palpation, no lesions Heart: RRR, normal S1/S2, no murmurs/rubs/gallops, pulses present Deviation from normal: trace peripheral edema of bilateral hands and feet General: CTAB, no respiratory distress, good air movement, no rales/rhonchi, no wheezing, no retractions Abdomen: soft, gravid, bowel sound present Deviation from normal: Diffuse abdominal tendernes Musculoskeletal: normal gait and station, pulses present, FROM in all four extremities Neurological: cranial nerves II through XII intact, sensation to pain,touch and proprioception grossly normal, DTR +2, no clonus, no tremor, no focal deficit Skin: no rash, good tugor, capillary refill <2 seconds, no jaundice Lymphatic: no unusual bruising or bleeding, no purpura, no petechia Psychiatric: intact recent and remote memory, good judgement and insight, normal mood and affect FMR OB H&P: Results - Labs Lab results: Laboratory Results - last 24 hr 06/03/19 06/03/19 06/03/19 20:20 20:20 20:20 WBC 14.0 H RBC 4.47 Hgb 13.6 Hct 39.5 MCV 88.3 MCH 30.4 MCHC 34.5 RDW 12.9 Plt Count 121 L MPV 9.7 Neutrophils % 73.9 Lymphocytes % 20.5 L Monocytes % 5.0 Eosinophils % 0.5 Basophils % 0.1 Neutrophils # 10.4 H Lymphocytes # 2.9 Monocytes # 0.7 H Eosinophils # 0.1 Basophils # 0.0 Sodium 137 Potassium 3.6 Chloride 107 Carbon Dioxide 20 L Anion Gap 14 BUN 11 Creatinine 0.66 Estimated GFR (MDRD) Greater than 90 Glucose 83 Uric Acid 5.1 Calcium 8.9 Total Bilirubin 0.3 AST 30 ALT 21 Alkaline Phosphatase 122 Troponin I Less than 0.010 B-Natriuretic Peptide Serum Total Protein 6.0 Albumin 3.3 L Globulin 2.7 Albumin/Globulin Ratio 1.2 06/03/19 20:20 WBC RBC Hgb Hct MCV MCH MCHC RDW Plt Count MPV Neutrophils % Lymphocytes % Monocytes % Eosinophils % Basophils % Neutrophils # Lymphocytes # Monocytes # Eosinophils # Basophils # Sodium Potassium Chloride Carbon Dioxide Anion Gap BUN Creatinine Estimated GFR (MDRD) Glucose Uric Acid Calcium Total Bilirubin AST ALT Alkaline Phosphatase Troponin I B-Natriuretic Peptide 16.6 Serum Total Protein Albumin Globulin Albumin/Globulin Ratio Laboratory Tests 06/03/19 06/03/19 06/03/19 20:20 20:20 20:20 WBC 14.0 H Plt Count 121 L Uric Acid 5.1 Troponin I Less than 0.010 B-Natriuretic Peptide Urine Protein Urine Ketones 06/03/19 06/03/19 20:20 21:42 WBC Plt Count Uric Acid Troponin I B-Natriuretic Peptide 16.6 Urine Protein Negative Urine Ketones Trace A FMR OB H&P: A/P - Problem List (1) Pre-eclampsia Current Visit: Yes Status: Suspected Code(s): O14.90 - UNSPECIFIED PRE- ECLAMPSIA, UNSPECIFIED TRIMESTER Qualifiers: Trimester: third trimester Qualified Code(s): O14.93 - Unspecified pre- eclampsia, third trimester (2) Headache Current Visit: No Status: Acute Code(s): R51 - HEADACHE (3) Back pain affecting in third trimester Current Visit: No Status: Acute Code(s): O99.89 - OTH DISEASES AND CONDITIONS COMPL PREG/CHLDBRTH; M54.9 - DORSALGIA, UNSPECIFIED (4) Intrauterine Current Visit: No Status: Acute Code(s): Z34.90 - ENCNTR FOR SUPRVSN OF NORMAL , UNSP, UNSP TRIMESTER Disposition: Pt stable Admit to observation for Pre-Eclampsia rule out Discussion: Date/Time: 06/03/192126 28 y/o @ 34 wks, admitted for observation for Pre-eclampsia rule out. 1. Suspected Pre-Eclampsia vs Gestational HTN - Elevated BP's, increased peripheral edema, and headache - Ordered 24 hr urine protein - Ordered CBC, CMP, uric acid - Ordered BNP, EKG and Troponin 2. Intrauterine @ 34 wks. - NST Qshift 3. Headache - Ordered Reglan and Benadryl - Monitor for improvement post medications This H&P was discussed with Dr. Thomas and Dr. Gan who agree with the above documentation and plan.
[2019-06-03 22:05] LABS: Bilirubin Negative (Negative); Blood, Urine Negative (Negative); Clarity Clear (Clear); Glucose, Urine (Dipstick) Normal (Negative); Leukocyte Negative Leu/uL (Negative); Mucous/LPF Rare LPF (<2+); Nitrite Negative (Negative); Protein, Urine (Dipstick) Negative (Neg-Trace); RBC/HPF 0-3 HPF (0-3); Squamous Epithelial 0-3 HPF (0-3); Urobilinogen Normal mg/dL (Less than 2); WBC/HPF 0-3 HPF (0-3)
[2019-06-03 22:13] LABS: Bacteria/HPF 1+ HPF (None Seen)
[2019-06-04] MEDS ORDERED: diphenhydrAMINE 50 MG/ML VIAL IVP PRN (00:07)
--- NOTE | 2019-06-04 00:07 | PDOC.EVN ---
Event Note - Event Note Event Note: Date/Time: 06/04/19 0005 I personally evaluated the patient and discussed the management with Dr. Faith I agree with the History, Examination, Assessment and Plan documented above with any addition or exceptions noted below - 28 yo female @34 weeks sent from [facility] due to new onset of SOB and increased edema since yesterday. Worse with walking short distances. Denies any CP or similar epsidoes. Also c/o MARINO. Has had MARINO throughout this minimally responsive to tylenol. No h/ o MARINO prior to . denies N/V. (+) FM PMH/PSH/Meds/All reviewed and agree with resident's documentation. BP 104/59 P70 R18 100%RA Exam repeated by me and agree with resident's assessment and plan. Labs: WBC=14.0. H/H=13.6/39.5, Ofc=091, Xh=739, K=3.6, BUN/Cr=11/0.66, BNP=16.6, trop I<0.010. A/P: 1) New onset SOB - initial concern for developing cardiomyopathy/pre-eclampsia but initial labs normal and BP improved from clinic readings. 24 hour urine for protein started. EKG and CXR pending, 2) MARINO- will give trial of reglan and benadryl.
[2019-06-04] MEDS: Metoclopramide HCl 10 MG/2 ML VIAL IVP PRN ×2 (04:10→15:19)
[2019-06-04] MEDS ORDERED: Sodium Chloride 0.9% 10 ML ONE ×2 (04:31→15:17)
[2019-06-04 04:52] LABS: #Eosinphils 0.1 thou/uL (0.0-0.7); #Lymphocytes 2.4 thou/uL (1.20-3.40); #Monocytes 0.7 thou/uL (0.11-0.59); %Basophils 0.2 % (0.0-1.0); %Eosinophils 0.9 % (0.0-10.0); %Lymphocytes 26.5 % (21.0-51.0); %Neutrophils 64.5 % (42.0-75.0); Hemoglobin 12.7 g/dL (12.0-16.0); Mean Corpuscular HGB CONC 33.3 g/dL (32.0-36.0); Mean Corpuscular Hemoglobin 29.3 pg (27.0-31.0); Mean Corpuscular Volume 88.1 fL (78.0-98.0); Mean Platelet Volume 10.2 fL (7.4-10.4); Platelet Count 117 thou/uL (130-400); RBC Distribution Width 12.8 % (11.5-14.5); Red Blood Cell (RBC) Count 4.34 mill/uL (4.20-5.40); White Blood Cell (WBC) Count 9.2 thou/uL (4.8-10.8)
--- NOTE | 2019-06-04 07:12 | PDOC.FM ---
- Subjective Subjective: Ms. Kline reports her LE edema has improved overnight. Tolerating PO intake well. Her headache was relieved with benadryl and reglan and she slept well last night. Feels headache is starting to recur. Has ambulated to bathroom without difficulty. Will ambulate in hallway with pulse ox today. - Objective Vital Signs & Weight: Vital Signs (12 hours) Temp Pulse Resp BP Pulse Ox 06/04/19 04:10 98.2 F 70 18 109/59 L 100 06/04/19 00:45 97.5 F L 68 20 112/53 L 98 06/03/19 22:00 70 18 104/59 L 100 06/03/19 20:01 97.9 F 65 20 126/64 100 Weight Weight 84.232 kg I&O: 06/03/19 06/04/19 06/05/19 06:59 06:59 06:59 Intake Total 623 Output Total 1000 Balance -377 Result Diagrams: 06/04/19 04:17 06/03/19 20:20 Phys Exam - Physical Examination Constitutional: NAD Respiratory: no wheezing, clear to auscultation bilateral Cardiovascular: RRR, no significant murmur Gastrointestinal: soft, non-tender, positive bowel sounds Musculoskeletal: edema present (1+ pitting edema BLE, no calf tenderness) Neurological: non-focal Psychiatric: normal affect Skin: normal turgor Dx/Plan (1) Elevated blood pressure reading Code(s): R03.0 - ELEVATED BLOOD-PRESSURE READING, W/O DIAGNOSIS OF HTN Status : Acute (2) Headache Code(s): R51 - HEADACHE Status: Acute - Plan Plan: 28 y/o @ 34 wks, admitted for observation for Pre-eclampsia rule out. Suspected Pre-Eclampsia vs Gestational HTN, improved - BP have been wnl throughout the night without medication - 24 hr urine protein pending - Labs have otherwise been wnl - CXR pending - EKG with nonspecific p and t wave inversions Thrombocytopenia - present on initial OB labs and downtrending, 117 this am Intrauterine @ 34 wks. - NST Qshift Headache - Reglan and Benadryl prn Dispo: continue to monitor BP. Will get ambulatory pulse ox today in addition to LE dopplar to rule out DVT though do have low suspicion at this time. Pending CXR and 24 hr urine.
[2019-06-04] MEDS: Famotidine/PF 20 mg/2ml Vial SLOW IVP SCH ×2 (08:53→20:52)
[2019-06-04] MEDS: Famotidine 20 MG TAB PO SCH ×2 (08:55→20:54)
[2019-06-04] MEDS: Acetaminophen 325 MG TAB PO PRN ×3 (08:56→19:33)
--- NOTE | 2019-06-04 09:50 | RAD ---
XR Chest Pa Lat STANDARD HISTORY: Shortness of breath COMPARISON: None FINDINGS: The heart size is normal. The lungs are well expanded without focal areas of consolidation, pneumothorax or pleural effusions. IMPRESSION: No radiographic evidence of acute cardiopulmonary process.
--- NOTE | 2019-06-04 13:08 | ULT ---
EXAM: Bilateral lower extremity venous Doppler US HISTORY: bilateral lower extremity edema and dyspnea FINDINGS: Grayscale, color-flow, Doppler evaluation, spectral analysis of the bilateral lower extremities venou s structures is performed with 2-D imaging. The bilateral common femoral, superficial femoral, popliteal, posterior tibial, proximal greater saphenous and profunda femoral veins are imaged. There is normal luminal compressibility, flow, and augmentation in the visualized deep venous structu res of the bilateral lower extremities. IMPRESSION: No evidence of a deep vein thrombosis in either lower extremity.
--- NOTE | 2019-06-05 06:58 | PDOC.FM ---
- Subjective Subjective: Ms. Kline was resting comfortably in bed. She was able to ambulate in [place] yesterday without SOB and maintaining O2 sats. Denies current headache. LE swelling has continued to improve. - Objective Vital Signs & Weight: Vital Signs (12 hours) Temp Pulse Resp BP Pulse Ox 06/05/19 04:52 98.2 F 70 18 119/66 99 06/05/19 00:56 98.8 F 84 18 113/67 100 06/04/19 20:00 98.3 F 77 20 119/68 99 Weight Weight 84.232 kg I&O: 06/03/19 06/04/19 06/05/19 06:59 06:59 06:59 Intake Total 623 1180 Output Total 1000 1350 Balance -377 -170 Result Diagrams: 06/04/19 04:17 06/03/19 20:20 Phys Exam - Physical Examination Constitutional: NAD Respiratory: no wheezing, clear to auscultation bilateral Cardiovascular: RRR, no significant murmur Gastrointestinal: soft trace nonpitting BLE edema Neurological: non-focal Psychiatric: normal affect Skin: normal turgor Dx/Plan (1) Elevated blood pressure reading Code(s): R03.0 - ELEVATED BLOOD-PRESSURE READING, W/O DIAGNOSIS OF HTN Status : Acute (2) Headache Code(s): R51 - HEADACHE Status: Acute - Plan Plan: 28 y/o @ 34 wks, admitted for observation for Pre-eclampsia rule out. Pre-Eclampsia workup - BP have been wnl throughout hospitalization without medication - 24 hr urine protein pending - Labs have otherwise been wnl - CXR neg, LE venous doppler neg - EKG with nonspecific p and t wave inversions Thrombocytopenia - present on initial OB labs and downtrending, 117 Intrauterine @ 34 wks. - NST Qshift Headache - Reglan and Benadryl prn Dispo: Unfortunately 24 hr urine collection was restarted late last night as collected specimen was not refrigerated. Will get spot urine pr/cr ratio. Patient can complete 24 hr urine after discharge.
[2019-06-05] MEDS: Famotidine 20 MG TAB PO SCH (08:41)
[2019-06-05 11:05] LABS: Creatinine, Urine 46.09 mg/dL (47-110); Protein, Urine Random Quant Less than 10 mg/dL (1-14)
[2019-06-05] MEDS: Acetaminophen 325 MG TAB PO PRN (14:03)
[2019-06-05] MEDS ORDERED: Sodium Chloride 0.9% 10 ML ONE (14:33)
[2019-06-05] MEDS: Metoclopramide HCl 10 MG/2 ML VIAL IVP PRN (14:36)
--- NOTE | 2019-06-05 14:58 | PDOC.EVN ---
Event Note - Event Note Event Note: Paged for pt having painful contractions. Pt reports she had return of her headache then shortly after had 2 strong contractions which made her vomit. She reports pos movement, no discharge, bleeding, LOF. No recurrent contractions. Pt reported contraction earlier today; however, none elicited on NST. Will apply EFM if contractions return and order pelvis US to assess cervical length and r/o labor. If cervical length >3cm and no recurrent contractions pt can be discharged to home.
--- NOTE | 2019-06-05 15:49 | ULT ---
Exam: Limited OB ultrasound: HISTORY: Evaluate for cervical length and lie COMPARISON: 06/03/2019 Cervical length approximates 2.5 cm compared to 3.2 cm on the prior study. Vertex presentation compared to a previous breech presentation. Anterior placenta. 171 bpm IMPRESSION: Cervical length of 2.5 cm. Vertex presentation.
[2019-06-05 16:10] VITALS: BP 118/59; TEMP 98.3
--- NOTE | 2019-06-05 17:01 | PDOC.EVN ---
Event Note - Event Note Event Note: Pt pr/cr ratio negative. She had repeat NST which showed reactive strip baseline 145 pos accels no late or variable decelerations. Reactive NST. On repeat NST pt did have sporadic contractions; however, reports she is not feeling any contractions currently. She is ambulating and comfortable. Return precations provided.
== END 2019-06-05 17:16 | disposition home health service (06) ==
LOC: INTOOBSV 17:22 → 3SE 17:22
PROVIDERS: ADMIT Student in an Organized Health Care Education/Training Program; ATTEND Student in an Organized Health Care Education/Training Program
DX: O99.89 Other specified diseases and conditions complicating pregnancy, childbirth and the puerperium (principal); R03.0 Elevated blood-pressure reading, without diagnosis of hypertension; R51 Headache; O99.113 Other diseases of the blood and blood-forming organs and certain disorders involving the immune mechanism complicating pregnancy, third trimester; D69.6 Thrombocytopenia, unspecified; Z3A.34 34 weeks gestation of pregnancy
CPT/HCPCS: 36415; 59025; 71046; 76815; 76816; 76819; 81001; 82570; 83880; 84156; 84550; 85025; 93005; 93010; 93970; 96374; 96375; 96376; G0378; J1200; J2405; J2765; S0028

== ENCOUNTER 2019-06-09 21:41 | Day surgery (SDC) | payer OTHER ==
[2019-06-09 22:20] VITALS: BP 123/59; TEMP 98; BMI 32.4
[2019-06-09] MEDS ORDERED: hydrALAZINE 20 MG/ML VIAL SLOW IVP PRN (22:54)
[2019-06-09] MEDS: Lactated Ringer's 1,000 ML IV SCH ×2 (22:58→23:47)
[2019-06-09] MEDS: diphenhydrAMINE 50 MG/ML VIAL IVP PRN (23:06)
[2019-06-09] MEDS: Metoclopramide HCl 10 MG/2 ML VIAL IVP PRN ×2 (23:06→23:43)
--- NOTE | 2019-06-09 23:10 | PDOC.FPROB ---
FMR OB H&P: HPI - History of Present Illness Chief Complaint: L-sided rib pain and migraine History of Present Illness: 28 y/o , at 34.5 wks presents to L&D with L-sided lower rib pain and migraine headache. She states this pain started last night (06/08), and is worsened by deep respirations. Pt denies vaginal discharge, vaginal bleeding, decreased movements, or LOF. PT took reglan and Benadryl this morning which did not alleviate the headache. Pt also c/o nausea. Denies any V/D. C/o contractions of 3 in the past X2 hours. Pt was hospitalized last week for a pre-e rule out. Urine Protein/Cr ratio was 0.22. Primary Care Physician: BEN Samuel FMR OB H&P: Current - Care : 6 Para: 2 Gestational age: 34.5 Due date: 07/20/19 Dating Criteria: LMP confirmed by 10.1wk sono Course/Complications: Migraines, elevated BP with negative Pre-E workup - OB Labs Blood type: O RH: positive Antibody Screen: negative HIV: negative RPR: negative HepBsAg: negative Rubella: immune Quad screen: negative Gonorrhea: negative Chlamydia: negative Pap Smear: NILM 1 hour gtt: 112 GBS: unknown H&H: 13.5/38.1 Platelets: 117 Additional labs: neg sickle cell trait FMR OB H&P: History - Past Medical History PMH: Migraines starting at 28 wks gestation of this . - OB History OB History: 1 elective 2 spontaneous abortions - [employer] History [employer] History: NILM hx of chlamydia s/p treatment with HECTOR in January 2019 - Surgical History Sx History: none - Social History Social History: denies drug, etoh, or tobacco abuse - Family History Family History: father: HTN, Mother: HTN, sickle cell trait GM: breast CA FMR OB H&P: Medications - Current Home Medications: Medication Instructions Recorded Confirmed Type Acetaminophen [Tylenol Regular 650 mg PO Q6HR PRN 04/14/19 06/09/19 History Strength] 21/Iron Fu/Folic Acid 1 tablet PO DAILY 04/14/19 06/09/19 History [ Complete Caplet] Metoclopramide HCl [Reglan] 10 mg PO DAILY #20 tab 06/05/19 06/09/19 Rx diphenhydrAMINE [Benadryl] 25 mg PO HS PRN #30 tab 06/05/19 06/09/19 Rx Allergies/Adverse Reactions: Allergies Allergy/AdvReac Type Severity Reaction Status Date / Time No Known Allergies Allergy Verified 06/09/19 22:15 FMR OB H&P: ROS - Review of Systems General: denies: fever/chills, night sweats, fatigue Eyes: reports: vision changes, scotomas (not currently, but in past). denies: eye pain, double vision ENT: denies: nasal congestion, ear pain, sore throat Cardiovascular: denies: chest pain, palpitation, edema Respiratory: reports: other (pain with deep inspirations). denies: cough, congestion, shortness of breath Gastrointestinal: reports: cramping, nausea. denies: abdominal pain, vomiting, diarrhea Genitourinary (Female): reports: contractions. denies: incontinence, dysuria, hematuria, polyuria, hesitancy, vaginal discharge, vaginal pain, vaginal bleeding Musculoskeletal: reports: pain, stiffness, tenderness, decrease range of motion. denies: redness, swelling, arthritis/arthralgias Neurologic: denies: numbness, syncope, seizures, weakness, loss of counsciousness Integumentary: denies: itching, rash Hematologic/Lymphatic: denies: prolonged or excessive bleeding, enlarged lymph nodes FMR OB H&P: Vital Signs - Maternal Vital signs: Vital Signs - First Documented Temp Pulse Resp BP 98.0 F 80 20 123/59 L 06/09/19 22:12 06/09/19 22:12 06/09/19 22:12 06/09/19 22:12 - Heart Tones Baseline: 155 Variability: moderate Acceleration: absent Deceleration: absent Category: category 1 [place] contractions every: irregular and not frequent FMR OB H&P: Physical Exam - Physical Exam General: NAD, awake, alert and oriented HEENT: normocephalic and atraumatic, PERRLA, EOMI, MMM, conjunctiva clear, no scleral icterus, grossly normal vision, grossly normal hearing, oropharynx clear Neck: supple, FROM, trachea midline, no LAD, no JVD Chest: no lesions Deviation from normal: Anteriolateral left lower chest wall tenderness to palpation over rib 9-10 Heart: RRR, normal S1/S2, no murmurs/rubs/gallops, pulses present, no edema General: CTAB, no respiratory distress, good air movement, no rales/rhonchi, no wheezing, no retractions Abdomen: soft, gravid, non-tender, bowel sound present, no masses, no hernias Musculoskeletal: normal gait and station, pulses present, FROM in all four extremities, no misalignment/asymmetry, no atrophy Neurological: cranial nerves II through XII intact, sensation to pain,touch and proprioception grossly normal, DTR +2, no clonus, no tremor, no focal deficit Skin: no rash, good tugor, capillary refill <2 seconds, no jaundice Lymphatic: no unusual bruising or bleeding, no purpura, no petechia, no LAD Psychiatric: intact recent and remote memory, good judgement and insight, normal mood and affect FMR OB H&P: A/P Disposition: Pt stable, will watch and re-evaluate migraine headache and L-sided chest wall pain post interventions. Discussion: Date/Time: 06/09/19 2310 28 y/o , presents to L&D with migraine headache and L-rib pain. 1. L-sided lower intercostal somatic dysfunction - Stretching and gentle massage recommended and taught to patient - Morphine 2 mg IV once for pain control 2. Migraine Headache - Photophobia, sensitive to sound, pulsating and unilateral. - no current scotomas - Reglan, Benadryl Q30min - BP's 123/59, negative Pre-E workup last week. 3. IUP @ 34.5 wks - no contractions on TOCO - FHT's 155 and reactive This H&P was discussed with Dr. Del Valle who agree with the above documentation and plan. Addendum - Attending - Attending Attestation Date/Time: 06/12/19 0049 I personally evaluated the patient and discussed the management with Dr. Rhoades I agree with the History, Examination, Assessment and Plan documented above with any addition or exceptions noted below. Pt with h/o migraines presenting with headache, light sensativity, nausea. Also reporting rib pain making it difficult to breath. /59 98.0 80 20 pt appear miserable with blanket over her head. intercostal ttp reglan 10mg q30min x4 dose and benadryl 25mg q1h x2 given with good results. Headache much improved. pt stretched to help intercostal pain with success pt discharged home much improved. fetus with reactive nst
[2019-06-09] MEDS ORDERED: Morphine 4 MG/ML VIAL IM SCH (23:15)
[2019-06-09] MEDS ORDERED: Morphine 4 MG/ML VIAL IV SCH (23:18)
[2019-06-10] MEDS: Metoclopramide HCl 10 MG/2 ML VIAL IVP PRN ×2 (00:15→01:05)
[2019-06-10] MEDS: diphenhydrAMINE 50 MG/ML VIAL IVP PRN (00:15)
--- NOTE | 2019-06-10 00:47 | PDOC.EVN ---
Event Note - Event Note Event Note: Pt states her headache and L-sided rib pain are much better. She feels safe to go home and has transportation to do so.
== END 2019-06-10 02:05 | disposition home or self-care (01) ==
LOC: L&D/OP 21:41
PROVIDERS: ATTEND Obstetrics & Gynecology
DX: O99.353 Diseases of the nervous system complicating pregnancy, third trimester (principal); G43.909 Migraine, unspecified, not intractable, without status migrainosus; O99.89 Other specified diseases and conditions complicating pregnancy, childbirth and the puerperium; R07.81 Pleurodynia; Z3A.34 34 weeks gestation of pregnancy; O26.893 Other specified pregnancy related conditions, third trimester
CPT/HCPCS: 96360; 96361; 96375; 99282; J1200; J2270; J2765

== ENCOUNTER 2019-06-23 10:31 | Day surgery (SDC) | payer OTHER ==
[2019-06-23 11:04] VITALS: BMI 32.5
[2019-06-23] MEDS ORDERED: hydrALAZINE 20 MG/ML VIAL SLOW IVP PRN (11:24)
--- NOTE | 2019-06-23 11:25 | PDOC.FPROB ---
FMR OB H&P: HPI - History of Present Illness Chief Complaint: Contractions Indentification: 28yo at 36.5wks by LMP c/w 10.1wk US History of Present Illness: 28yo at 36.5wks by LMP c/w 10.1wk US presents with concern for LOF yesterday at noon. Reports she has had episodes of "gushes" of water like fluid. Denies continuous leakage. Endorses movement. Reports painful contractions last week but currently just experiencing cramping. Episode of vaginal bleeding last week, was seen in clinic later that day. No episodes since. Was recently admitted this month for PreE workup that was negative. Primary Care Physician: Dr Samuel FMR OB H&P: Current - Care : 6 Para: 2 Gestational age: 36.5wks Due date: 07/20/19 Dating Criteria: LMP c/w 10.1wk US Course/Complications: Migraines starting at 28wks, elevated BPs with negative PreE workup Chlamydia in with negative HECTOR in January 2019 - OB Labs Blood type: O RH: positive Antibody Screen: negative HIV: negative RPR: negative HepBsAg: negative Rubella: immune Gonorrhea: negative Chlamydia: negative Pap Smear: NILM 1 hour gtt: 112 GBS: unknown H&H: 9.2/38.2 Platelets: 117 - First Trimester Ultrasound First trimester: 10.1wks FMR OB H&P: History - Past Medical History PMH: Unremarkable - OB History OB History: 1 elective 2 spontaneous abortions Migraines starting at 28 wks gestation of this . - [employer] History [employer] History: NILM hx of chlamydia s/p treatment with HECTOR in January 2019 - Surgical History Sx History: None - Social History Social History: Denies tobacco, alcohol or drug use. - Family History Family History: Noncontributory FMR OB H&P: Medications - Current Home Medications: Medication Instructions Recorded Confirmed Type Acetaminophen [Tylenol Regular 650 mg PO Q6HR PRN 04/14/19 06/09/19 History Strength] 21/Iron Fu/Folic Acid 1 tablet PO DAILY 04/14/19 06/09/19 History [ Complete Caplet] Metoclopramide HCl [Reglan] 10 mg PO DAILY #20 tab 06/05/19 06/09/19 Rx diphenhydrAMINE [Benadryl] 25 mg PO HS PRN #30 tab 06/05/19 06/09/19 Rx Allergies/Adverse Reactions: Allergies Allergy/AdvReac Type Severity Reaction Status Date / Time No Known Allergies Allergy Verified 06/23/19 11:02 FMR OB H&P: ROS - Review of Systems General: denies: fever/chills, fatigue Eyes: denies: vision changes, double vision, scotomas ENT: denies: nasal congestion, rhinorrhea Cardiovascular: denies: chest pain, edema Respiratory: denies: cough, shortness of breath Gastrointestinal: denies: vomiting Genitourinary (Female): reports: vaginal bleeding, contractions. denies: dysuria, vaginal discharge Integumentary: denies: rash, lesions FMR OB H&P: Vital Signs - Heart Tones Baseline: 155 Variability: moderate Acceleration: present Deceleration: absent Category: category 1 FMR OB H&P: Physical Exam - Physical Exam General: NAD, awake, alert and oriented HEENT: normocephalic and atraumatic, MMM, conjunctiva clear Neck: supple, trachea midline Chest: non-tender to palpation Heart: RRR, no murmurs/rubs/gallops General: CTAB, no respiratory distress, good air movement, no wheezing Abdomen: soft, gravid, non-tender, bowel sound present Musculoskeletal: pulses present, no misalignment/asymmetry, no atrophy Neurological: no focal deficit Skin: no rash, good tugor Lymphatic: no unusual bruising or bleeding Psychiatric: intact recent and remote memory, good judgement and insight, normal mood and affect - Pelvic Exam Estimated Weight: 6 lbs FMR OB H&P: A/P Disposition: 28yo at 36.5wks by LMP c/w 10.1wk US presents with contractions sIUP, rule out labor - FHTs 155 Cat 1 - NST reactive - Amnisure negative Chlamydia in - HECTOR January 2019 Elevated BPs this - negative Pre E workup 06/04/19 Migraines - Improving, taking Reglan PRN Dispo: Discussed negative amnisure results with pt. Discharged with instructions to follow up with PCP On 06/25/19 for routine care Discussion: Date/Time: 06/23/19 1125 This H&P was discussed with Dr. Hdz who agrees with the above documentation and plan. Addendum - Attending - Attending Attestation Date/Time: 06/23/19 [id number] I personally evaluated the patient and discussed the management with Dr. Rhoades. I agree with the History, Examination, Assessment and Plan documented above.
[2019-06-23 11:26] LABS: Amnisure Test No Membranes Rupture (No Rupture)
[2019-06-23 11:27] LABS: Amnisure Internal Control QC ACCEPTABLE (ACCEPTABLE)
== END 2019-06-23 12:21 | disposition home or self-care (01) ==
LOC: L&D/OP 10:31
PROVIDERS: ATTEND Family Medicine
DX: O47.03 False labor before 37 completed weeks of gestation, third trimester (principal); O99.353 Diseases of the nervous system complicating pregnancy, third trimester; G43.909 Migraine, unspecified, not intractable, without status migrainosus; Z3A.36 36 weeks gestation of pregnancy; Z79.899 Other long term (current) drug therapy
CPT/HCPCS: 84112; 99283

== ENCOUNTER 2019-07-05 20:17 | Day surgery (SDC) | payer OTHER ==
[2019-07-05 20:53] VITALS: BP 128/76; TEMP 97.7; BMI 33.5
[2019-07-05] MEDS ORDERED: hydrALAZINE 20 MG/ML VIAL SLOW IVP PRN (21:03)
--- NOTE | 2019-07-05 22:12 | PDOC.FPROB ---
FMR OB H&P: HPI - History of Present Illness Chief Complaint: Elevated BP History of Present Illness: 28 yo F @ 38 weeks presents for evaluation of elevated BP at home. Pt took BP on wrist cuff and had readings of 150-160 throughout the day with diastolic BP 90-100. On arrival to l&d pts bp normotensive @ 120s over 70s. No headache, changes in vision, ruq/epigastric pain, cp, sob, NVDC. Does report some edema but has had some edema previously, no change. Reports pos movement, denies LOF, CTX, vaginal bleeding, vaginal discharge. No NVDC. Primary Care Physician: BEN Samuel/Shaquille FMR OB H&P: Current - Care : 7 Para: 3033 Dating Criteria: LMP 7.1 sono Course/Complications: Herpes titer positive, taking acycolvir for ppx, no primary lesions, no previous outbreaks. - OB Labs Blood type: O RH: positive Antibody Screen: negative HIV: negative RPR: negative HepBsAg: negative Rubella: immune Quad screen: negative Urine drug screen: not done Gonorrhea: negative Chlamydia: positive (Neg HECTOR and Neg 3t repeat) GBS: unknown FMR OB H&P: History - Past Medical History PMH: None - OB History OB History: 2 prior SAB one prior eAB Pos chlamydia, neg hector FMR OB H&P: Medications - Current Home Medications: Medication Instructions Recorded Confirmed Type Acetaminophen [Tylenol Regular 650 mg PO Q6HR PRN 04/14/19 07/05/19 History Strength] 21/Iron Fu/Folic Acid 1 tablet PO DAILY 04/14/19 07/05/19 History [ Complete Caplet] Metoclopramide HCl [Reglan] 10 mg PO DAILY #20 tab 06/05/19 07/05/19 Rx diphenhydrAMINE [Benadryl] 25 mg PO HS PRN #30 tab 06/05/19 07/05/19 Rx predniSONE 20 mg PO DAILY 07/05/19 07/05/19 History valACYclovir HCl [valACYclovir] 1 tab PO BID 07/05/19 07/05/19 History Allergies/Adverse Reactions: Allergies Allergy/AdvReac Type Severity Reaction Status Date / Time No Known Allergies Allergy Verified 06/23/19 11:02 FMR OB H&P: ROS - Review of Systems General: denies: fever/chills, weight/appetite/sleep changes Eyes: denies: vision changes, double vision ENT: denies: nasal congestion Cardiovascular: reports: edema. denies: chest pain Respiratory: denies: cough, congestion, shortness of breath Gastrointestinal: denies: abdominal pain, nausea, vomiting, diarrhea, constipation Genitourinary (Female): denies: dysuria, vaginal bleeding, contractions, vaginal pressure Musculoskeletal: denies: pain Neurologic: denies: numbness, syncope, seizures, weakness Integumentary: denies: rash FMR OB H&P: Vital Signs - Maternal Vital signs: Vital Signs - First Documented Temp Pulse Resp BP Pulse Ox 97.7 F 81 20 128/76 97 07/05/19 20:45 07/05/19 20:45 07/05/19 20:45 07/05/19 20:45 07/05/19 20:45 - Heart Tones Baseline: 150 Variability: moderate Acceleration: present Deceleration: absent Category: category 1 [place] contractions every: 10-15min FMR OB H&P: Physical Exam - Physical Exam General: NAD, awake, alert and oriented HEENT: normocephalic and atraumatic, PERRLA, EOMI, MMM, conjunctiva clear Neck: supple, trachea midline Chest: non-tender to palpation Breast: symmetric, no palpable masses, no erythema Heart: RRR, normal S1/S2, no murmurs/rubs/gallops, pulses present, other (1+ pitting edema) General: CTAB, no respiratory distress, good air movement, no rales/rhonchi, no wheezing, no retractions Abdomen: soft, gravid, non-tender, bowel sound present Musculoskeletal: FROM in all four extremities Neurological: DTR +2, no clonus, no focal deficit Skin: no rash - Pelvic Exam Estimated Weight: 7 lbs FMR OB H&P: Results - Labs Lab results: Laboratory Results - last 24 hr 07/05/19 21:16 Urine Protein Negative FMR OB H&P: A/P Disposition: 28 yo @ 38 weeks presents for elevated bp - monitored on L&d and no evidence of elevated BPs - urine protein dip negative for protein - pt counseled on return precautions and preeclampsia symptoms reviewed - if pt has continued elevated BPs recommend she return if any associated symptoms or >160/110 - given negative protein and no elevated pressures probable faulty BP cuff - she wass instructed to bring cuff if she returns for elevated BPs and if no further elevated BPs bring cuff to vandana induction for comparison - pt has vandana induction 07/09/19 - dc to home with return precautions. Discussion: Date/Time: 07/05/192211 This H&P was discussed with Dr. Samuel who agree with the above documentation and plan.
== END 2019-07-05 22:20 | disposition home or self-care (01) ==
LOC: L&D/OP 20:17
PROVIDERS: ATTEND Family Medicine
DX: O99.89 Other specified diseases and conditions complicating pregnancy, childbirth and the puerperium (principal); R03.0 Elevated blood-pressure reading, without diagnosis of hypertension; Z3A.38 38 weeks gestation of pregnancy; Z79.52 Long term (current) use of systemic steroids; Z79.899 Other long term (current) drug therapy
CPT/HCPCS: 81003; 99283

== ENCOUNTER 2019-07-09 19:15 | Inpatient (IN) | payer OTHER ==
[2019-07-09 21:34] VITALS: BMI 32.4
--- NOTE | 2019-07-09 21:34 | PDOC.LDHP ---
Labor and Delivery H&P Chief complaint: scheduled induction HPI: Patient is a 28F @ 39.0wks by 10.1wk finesse, [place] 07/16/19, here today for eIOL. Patient reports that she feels baby move. Denies vaginal bleeding or loss of fluid. Reports of headaches that are chronic, treated with tylenol. Denies cp, sob, abdominal pain at this time. States that she would like an epidural for this . States that she would like control after , considering depo shot. OB History Details: 1. SAB x 2 2. EA x 1 with d&c @ 13wks 3. 10/09/07 and 01/29/11 4. Chlamydia s/p tx, HECTOR neg 5. Hx of seropositive HSV, has been on valacyclovir; no hx of previous outbreaks 6. Fam hx of sickle cell dz (maternal aunt) 7. Fam hx of thalassemia (mom has trait) 8. TB exposure through work, quant gold negative 9. BV, treated 10. Thrombocytopenia, has been on prednisone for the past week Abnormal US findings: No Current medications: pre- vitamins, other (prednisone, valacyclovir) Previous surgical history: none Allergies/Adverse Reactions: Allergies Allergy/AdvReac Type Severity Reaction Status Date / Time No Known Allergies Allergy Verified 06/23/19 11:02 Social history: none - Physical Exam Vital signs reviewed and normal: yes General: NAD Heart: RRR Lungs: CTAB Abdomen: gravid Extremeties: pitting edema FHT: category 1 [place] contractions every: sporadic - OB Labs Blood type: O RH: positive Antibody Screen: negative HIV: negative RPR: negative HEPSAg: negative 1 hour GCT: negative GBS: negative Rubella: immune - Assessment L&D Assessment: elective induction at term - Plan Plan: admit to L&D, labor augmentation if indicated, anesthesia consult for pain management -: Patient is a 28F @ 39.0wks by 6.3wk finesse, [place] 07/16/19, here today for eIOL. #eIOL #Term -patient reports of intermittent ctx -denies loss of fluid or vaginal bleeding -reactive strip -3/50/-1, davis score of 8 -will start pit and recheck in 2 hours -continuous monitoring -vss, continue to monitor #Chlamydia s/p tx, HECTOR neg -patient denies symptoms of vaginal discharge, dysuria at this time #Hx of seropositive HSV, has been on valacyclovir; no hx of previous outbreaks -did not appreciate any vesicles on speculum exam, continue home valacyclovir #Fam hx of sickle cell dz (maternal aunt) #Fam hx of thalassemia (mom has trait) -sickle cell screen negative #TB exposure through work, -quant gold negative #Hx of BV, treated -denies vaginal discharge or dysuria at this time -white vaginal discharge noted on speculum exam, vp3 #Thrombocytopenia -has been on prednisone for the past week, continue -will continue to monitor Diet: NPO Fluids: LR @ 125 Dispo: inpatient for eIOL, will start pit and recheck in 2 hours Code: Full
[2019-07-09] MEDS ORDERED: hydrALAZINE 20 MG/ML VIAL SLOW IVP PRN (22:03)
[2019-07-09] MEDS ORDERED: Ibuprofen 800 MG TAB PO PRN (22:03)
[2019-07-09] MEDS ORDERED: Acetaminophen 500 MG TAB PO PRN (22:03)
[2019-07-09] MEDS ORDERED: Lidocaine 1% (PF) 30 ML VIAL SC PRN (22:03)
[2019-07-09] MEDS ORDERED: Ondansetron PF 4 MG/2 ML Vial IVP PRN (22:03)
[2019-07-09] MEDS ORDERED: NS / Oxytocin 40 units/1000ml 1,000 ML IV PRN (22:03)
[2019-07-09] MEDS ORDERED: Promethazine HCl 25 MG/ML VIAL IM PRN (22:03)
[2019-07-09] MEDS ORDERED: NS w/ Oxytocin 10 units 500 ML IV SCH (22:15)
[2019-07-09 22:28] LABS: Hemoglobin 13.4 g/dL (12.0-16.0); Mean Corpuscular HGB CONC 33.9 g/dL (32.0-36.0); Mean Corpuscular Hemoglobin 29.5 pg (27.0-31.0); Mean Platelet Volume 10.8 fL (7.4-10.4); Platelet Count 118 thou/uL (130-400); RBC Distribution Width 13.6 % (11.5-14.5); Red Blood Cell (RBC) Count 4.53 mill/uL (4.20-5.40); White Blood Cell (WBC) Count 15.9 thou/uL (4.8-10.8)
[2019-07-09 23:06] LABS: Syphilis Antibody Nonreactive (Nonreactive); Syphilis Antibody Index 0.06 S/CO (<1.00 Non-Reactive)
[2019-07-10] MEDS ORDERED: Fentanyl 4 mcg/Bup 0.1% Cadd 100 ML ONE ×2 (01:02→13:33)
[2019-07-10] MEDS ORDERED: diphenhydrAMINE 50 MG/ML VIAL IVP PRN (01:04)
[2019-07-10] MEDS ORDERED: Promethazine HCl 25 MG/ML VIAL IM PRN (01:04)
[2019-07-10] MEDS ORDERED: Lactated Ringer's 500 ML IV PRN (01:04)
[2019-07-10] MEDS ORDERED: ePHEDrine/0.9% NaCl/PF SYRINGE 50 mg/10 ml SLOW IVP PRN (01:04)
[2019-07-10] MEDS ORDERED: Ondansetron PF 4 MG/2 ML Vial IVP PRN (01:04)
[2019-07-10] MEDS ORDERED: Naloxone HCl 0.4 mg/ml Vial IVP PRN ×2 (01:04)
[2019-07-10] MEDS ORDERED: Communication Order-Pharmacy FS SCH (01:15)
[2019-07-10] MEDS ORDERED: Fentanyl 4 mcg/Bupivacaine 0.1% Cassette 100 ML EPIDURAL SCH (01:15)
[2019-07-10] MEDS: Lactated Ringer's 1,000 ML IV SCH ×4 (02:02→22:11)
--- NOTE | 2019-07-10 05:52 | PDOC.EVN ---
Event Note - Event Note Event Note: #eIOL, term ; @ 39.1 weeks -SVE /-2 @ 0403am, pit at 8 -reactive strip -patient feeling contractions -recheck in 2 hours -vss, continue to monitor Dispo: continue pit for eIOL, continue monitoring
--- NOTE | 2019-07-10 06:17 | PDOC.EVN ---
Event Note - Event Note Event Note: #eIOL, term ; @ 39.1 weeks -SVE /-2 @ 0600am, pit at 10 -reactive strip -patient feeling contractions; ctx on monitor q2-3min, sometimes further apart -recheck in 2 hours -vss, continue to monitor Dispo: continue pit for eIOL, continue monitoring
--- NOTE | 2019-07-10 08:58 | PDOC.LDPN ---
Labor & Delivery Progress Note - Subjective Subjective: comfortable, no concerns - Objective Vital signs reviewed and normal: yes (BP 97/54) General: NAD, resting, breathing through contractions Uterine fundus: non tender SVE: /-2 - Head well engaged, intact Dilation: 6 Effacement: 75% (70) Station: -2 FHT: category 1 (baseline 130s, accels, no decels, moderate variability), variability present [place] contractions every: 3-4min - Assessment (1) Intrauterine Code(s): Z34.90 - ENCNTR FOR SUPRVSN OF NORMAL , UNSP, UNSP TRIMESTER Status: Acute Plan: continue plan of care, pitocin for augmentation, other (AROM with IUPC) -: Patient is a 28F @ 39.1wks by 6.3wk sono, [place] 07/16/19, admitted for eIOL. #eIOL, Term - @ 39.1wk by 6.3wk sono - epidural in place - feels mild pressure as contractions, good movement, no loss of fluid - /-2, soft, well-engaged head, - Cat1 strip, baseline 130s, accels, no decels, moderate variability - Will AROM and place IUPC and titrate pit accordingly - continue to monitor FHT and VS #Chlamydia s/p tx, HECTOR neg -patient denies symptoms of vaginal discharge, dysuria at this time #Hx of seropositive HSV, has been on valacyclovir; no hx of previous outbreaks - no vesicles on speculum exam, continue home valacyclovir #Fam hx of sickle cell dz (maternal aunt) #Fam hx of thalassemia (mom has trait) -sickle cell screen negative #TB exposure through work -quant gold negative #Hx of BV, treated - denies vaginal discharge or dysuria at this time - VP3 + BV, will treat post delivery #Thrombocytopenia - has been on prednisone for the past week, continue - will continue to monitor Diet: NPO Fluids: LR @ 125 Dispo: inpatient for eIOL, no progression from last 2 checks, will AROM, placed IUP and titrate pit accordingly. Continue to monitor. Code: Full Addendum - Attending - Attending Attestation Date/Time: 07/10/19 8833 I personally evaluated the patient and discussed the management with Dr. Cazares I agree with the History, Examination, Assessment and Plan documented above with any addition or exceptions noted below.
[2019-07-10] MEDS ORDERED: Lidocaine 2% 10 ML INJ ONE (09:26)
--- NOTE | 2019-07-10 09:37 | PDOC.LDPN ---
Labor & Delivery Progress Note - Subjective Subjective: comfortable - Objective Vital signs reviewed and normal: yes General: NAD Dilation: 6/70/-2, intact FHT: category 2 - Assessment (1) Intrauterine Code(s): Z34.90 - ENCNTR FOR SUPRVSN OF NORMAL , UNSP, UNSP TRIMESTER Current Visit: No Status: Acute Plan: other ( with prolonged decel after check of 6 minutes, recovered with position changes, O2, IVFB, turning off pit. No tachysystole (q3-4m), no cord (intact, no funic) on exam. Currently cat 1 with moderate variability and no decels. Will monitor closely. OR available. Anesthesia recently bolused epidural. Dr. Samuel notified.)
--- NOTE | 2019-07-10 11:18 | PDOC.EVN ---
Event Note - Event Note Event Note: FHT: Cat I-II (minmal variability but responsive to FSS) AVSS IUPC placed, baby tolerated well Restart Pit as tolerated SVE: /-1 AROM 1100 (light med) Recheck in 2 hours
--- NOTE | 2019-07-10 15:09 | PDOC.LDPN ---
Labor & Delivery Progress Note - Subjective Subjective: comfortable - Objective Vital signs reviewed and normal: yes General: NAD, resting, breathing through contractions Uterine fundus: tender to palpation SVE: Samuel Dilation: 7 Effacement: 75% Station: 0 FHT: category 1 [place] contractions every: every 4-5 min, IUPC in place AROM: meconium stained fluid IUPC placed: yes Resuscitative measures: amniofusion Plan: pitocin for augmentation -: Patient is a 28F @ 39.1wks by 6.3wk sono, [place] 07/16/19, admitted for eIOL. #eIOL, Term - @ 39.1wk by 6.3wk sono - epidural in place - feels mild pressure as contractions, good movement - Had 6 min episode of bradycardia around 0945 on 07/10/19, baby recovered well after position change, IVF bolus, and materal O2 supplementation - AROM'd and IUPC placed at 1100, patient/baby tolerated it well, light mec noted at ROM - 7/80/0 at 1445 - Cat1 strip, baseline 130s, accels, no decels, moderate variability - continue to monitor FHT and VS - will restart pitocin induction #Chlamydia s/p tx, HECTOR neg -patient denies symptoms of vaginal discharge, dysuria at this time #Hx of seropositive HSV, has been on valacyclovir; no hx of previous outbreaks - no vesicles on speculum exam, continue home valacyclovir #Fam hx of sickle cell dz (maternal aunt) #Fam hx of thalassemia (mom has trait) -sickle cell screen negative #TB exposure through work -quant gold negative #Hx of BV, treated - denies vaginal discharge or dysuria at this time - VP3 + BV, will treat post delivery #Thrombocytopenia - has been on prednisone for the past week, continue - will continue to monitor
[2019-07-10] MEDS ORDERED: Milk Of Magnesia 30 ML UDCUP PO PRN (16:59)
[2019-07-10] MEDS ORDERED: hydrALAZINE 20 MG/ML VIAL SLOW IVP PRN (16:59)
[2019-07-10] MEDS ORDERED: Bisacodyl 10 MG SUPP PR PRN (16:59)
[2019-07-10] MEDS ORDERED: Lanolin Ointment 7 GM TUBE TOP PRN (16:59)
[2019-07-10] MEDS ORDERED: Adacel (T-DAP) 0.5 ML SYRINGE IM ONE (16:59)
[2019-07-10] MEDS ORDERED: NS / Oxytocin 40 units/1000ml 1,000 ML IV SCH (17:00)
--- NOTE | 2019-07-10 17:43 | PDOC.OPDEL ---
OB Operative/Delivery Note Delivery Dr/Surgeon: Dr. oCnn and Dr. Gustafson with Dr. Samuel supervising Pre-Delivery Diagnosis: elective induction Procedure/Post Delivery Dx: spontaneous vaginal delivery Weeks gestation: 39 Anesthesia: epidural - Findings A Sex: male - 1 min: 8 - 5 min: 9 - Additional Findings/Plan Placenta delivered: spontaneous Repaired Obstetrical Laceration: periurethral (bilateral/hemostatic) Estimated blood loss: 62 mL Compilations/Other Findings: This is a 28 year old female @ 39.1 wks who delivered a viable M infant at 1645 on 07/10/19. Following an uneventful antepartum course, a vigorous male was delivered over an intact perineum in the occipitoposterior position. Anterior Shoulder and then remainder of the body delivered. No nuchal cord. The head was held down and mouth and nares were bulb suctioned. Cord clamped and cut and cord blood collected. Placenta delivered intact with a 3 vessel cord noted. Fundal massage was performed and the fundus was firm. The cervix and vagina were inspected and bilateral periurethral laceration noted that were hemostatic and not repaired. Infant went to nursery in good condition for routine care. Apgars were 8&9 at 1 & 5 minutes, respectively. Patient tolerated delivery well and went to after routine recovery/care. Post delivery plan: routine recovery
[2019-07-10] MEDS: predniSONE 20 MG TAB PO SCH (20:51)
[2019-07-10] MEDS: valACYclovir 500 MG TAB PO SCH ×2 (20:52→22:06)
[2019-07-10] MEDS: Ferrous Sulfate 325 MG TAB PO SCH (20:55)
[2019-07-10] MEDS ORDERED: FLU VACC QS2019-20(6MOS UP)/PF 60 MCG/0.5 ML SYRINGE IM ONE (21:00)
[2019-07-10] MEDS: Docusate Calcium (SURFAK) 240 MG CAP PO SCH (22:06)
[2019-07-10] MEDS: Ibuprofen 800 MG TAB PO SCH (22:07)
[2019-07-11] MEDS: Ibuprofen 800 MG TAB PO SCH ×3 (05:53→21:47)
[2019-07-11] MEDS: Lactated Ringer's 1,000 ML IV SCH ×3 (06:11→21:47)
--- NOTE | 2019-07-11 07:19 | PDOC.PP ---
Post Progress Note Post Day #: 1 Subjective: Doing very well this morning. Ambulating without difficulty. Tolerating PO well without n/v, no fever/chills, lochia similar to period with clots, pain minimal and well-controlled with motrin, urinating without only mild burning but improving, passing flatus, no BM. PO intake tolerated: yes Flatus: yes Ambulation: yes Vital Signs (12 hours) Temp Pulse Resp BP Pulse Ox 07/11/19 05:50 98.1 F 77 14 136/77 07/11/19 01:05 97.8 F 78 16 127/61 07/10/19 20:55 99.1 F 85 18 135/75 07/10/19 19:55 98.5 F 86 18 136/93 H 98 Weight Weight 88.451 kg - Physical Examination General: NAD Cardiovascular: no m/r/g, RRR Respiratory: clear to auscultation bilaterally, non-labored breathing Abdominal: + bowel sounds, lochia (similar to period with clots), no distention , appropriately TTP Fundus firm & at: umbilicus Extremities: negative homans (B) (mild BL edema with L slight greater than R) Neurological: no gross focal deficits Psychiatric: A&Ox3, normal affect Result Diagrams: 07/09/19 22:12 Additional Labs: Post Labs Blood Type O POSITIVE 07/09/19 22:12 (1) Intrauterine Code(s): Z34.90 - ENCNTR FOR SUPRVSN OF NORMAL , UNSP, UNSP TRIMESTER Status: Acute - Assessment/Plan Patient is a 28F @ 39.1wks by 6.3wk finesse [place] 07/16/19, admitted for eIOL now s/p on07/10/19 @ 1645, PPD#1 #S/p , PPD#1 - @ 39.1wk by 6.3wk finesse - QBL 62cc - Doing very well, encourage ambulation, continue to monitor, VSS and afebrile #Hx of BV, treated - denies vaginal discharge or dysuria at this time - VP3 + BV at time of admission, will treat #Chlamydia s/p tx, HECTOR neg -patient denies symptoms of vaginal discharge, dysuria at this time #Hx of seropositive HSV - has been on valacyclovir; no hx of previous outbreaks - no vesicles on speculum exam, continue home valacyclovir #Fam hx of sickle cell dz (maternal aunt), Fam hx of thalassemia (mom has trait) -sickle cell screen negative #TB exposure through work -quant gold negative #Thrombocytopenia - has been on prednisone for the past week, continue - will continue to monitor Diet: Regular Fluids: Code: Full Dispo: S/p PPD#1, doing well. Continue routine care. Anticipate discharge tomorrow vs late today afternoon pending clinical course. Above plan discussed with patient at bedside, voiced agreement and understanding of plan.
[2019-07-11] MEDS: metroNIDAZOLE 500 MG TAB PO SCH ×2 (09:51→21:47)
[2019-07-11] MEDS: Ferrous Sulfate 325 MG TAB PO SCH ×3 (09:51→17:07)
[2019-07-11] MEDS: Prenatal Vitamin 1 TAB PO SCH (09:51)
[2019-07-11] MEDS: Docusate Calcium (SURFAK) 240 MG CAP PO SCH ×2 (09:51→21:47)
[2019-07-11] MEDS: predniSONE 20 MG TAB PO SCH (09:51)
[2019-07-11] MEDS: valACYclovir 500 MG TAB PO SCH ×2 (10:11→21:47)
[2019-07-11] MEDS: Acetaminophen 325 MG TAB PO PRN (15:45)
[2019-07-12] MEDS: Acetaminophen 325 MG TAB PO PRN (00:30)
--- NOTE | 2019-07-12 06:09 | PDOC.PP ---
Post Progress Note Post Day #: 2 Subjective: Doing well this morning, in good spirits, no acute events overnight, slept well. Ambulating well, PO intake without n/v, no fever/chills, Lochia minimal, multiple BM's, voiding without difficulty. Very minimal pain, controlled with Motrin. Eager for discharge today. PO intake tolerated: yes Flatus: yes Ambulation: yes Vital Signs (12 hours) Temp Pulse Resp BP Pulse Ox 07/12/19 00:20 98.5 F 73 18 135/84 07/11/19 20:09 98.4 F 67 16 130/78 99 Weight Weight 88.451 kg - Physical Examination General: NAD Cardiovascular: no m/r/g, RRR Respiratory: clear to auscultation bilaterally, non-labored breathing Abdominal: + bowel sounds, lochia (minimal), no distention, appropriately TTP Fundus firm & at: below umbilicus Extremities: negative homans (B) (1+ pitting edema BL to above ankles) Neurological: no gross focal deficits Psychiatric: A&Ox3, normal affect Result Diagrams: 07/09/19 22:12 Additional Labs: Post Labs Blood Type O POSITIVE 07/09/19 22:12 (1) Intrauterine Code(s): Z34.90 - ENCNTR FOR SUPRVSN OF NORMAL , UNSP, UNSP TRIMESTER Status: Acute - Assessment/Plan Patient is a 28F @ 39.1wks by 6.3wk finesse, [place] 07/16/19, admitted for eIOL now s/p on07/10/19 @ 1645, PPD#2 #S/p , PPD#2 - @ 39.1wk by 6.3wk finesse - QBL 62cc - Doing very well, encourage ambulation, continue to monitor, VSS and afebrile. Anticipate discharge this afternoon. #BV - h/o BV with treatment - denies vaginal discharge or dysuria at this time - VP3 + BV at time of admission, Flagyl 500mg BID x5d, counseled on avoidance of EtOH or EtOH containing products while on abx #Chlamydia s/p tx, HECTOR neg -patient denies symptoms of vaginal discharge, dysuria at this time #Hx of seropositive HSV - has been on valacyclovir; no hx of previous outbreaks - no vesicles on speculum exam, continue home valacyclovir #Fam hx of sickle cell dz (maternal aunt), Fam hx of thalassemia (mom has trait) -sickle cell screen negative #TB exposure through work -quant gold negative #Thrombocytopenia - has been on prednisone for the past week, continue - will continue to monitor Diet: Regular Fluids: SL Code: Full Dispo: S/p PPD#2, doing very well. Continue routine care. Anticipate discharge today pending clinical course. Above plan discussed with patient at bedside, voiced agreement and understanding of plan.
[2019-07-12] MEDS: Ibuprofen 800 MG TAB PO SCH (06:22)
[2019-07-12] MEDS: Lactated Ringer's 1,000 ML IV SCH (07:55)
[2019-07-12 08:14] VITALS: BP 134/66; TEMP 98
[2019-07-12] MEDS: Ferrous Sulfate 325 MG TAB PO SCH (08:44)
[2019-07-12] MEDS: Docusate Calcium (SURFAK) 240 MG CAP PO SCH (09:39)
[2019-07-12] MEDS: metroNIDAZOLE 500 MG TAB PO SCH (09:39)
[2019-07-12] MEDS: Prenatal Vitamin 1 TAB PO SCH (09:39)
[2019-07-12] MEDS: valACYclovir 500 MG TAB PO SCH (09:39)
[2019-07-12] MEDS: predniSONE 20 MG TAB PO SCH (09:39)
== END 2019-07-12 11:00 | disposition home or self-care (01) | DRG 806 ==
LOC: L&D 19:26 → 3SE 07-10 19:52
PROVIDERS: ADMIT Family Medicine; ATTEND Family Medicine
PROC: 10E0XZZ Delivery of Products of Conception, External Approach (ICD-10-PCS; principal; 2019-07-10)
PROC: 10907ZC Drainage of Amniotic Fluid, Therapeutic from Products of Conception, Via Natural or Artificial Opening (ICD-10-PCS; 2019-07-10)
PROC: 3E033VJ Introduction of Other Hormone into Peripheral Vein, Percutaneous Approach (ICD-10-PCS; 2019-07-10)
DX: O99.12 Other diseases of the blood and blood-forming organs and certain disorders involving the immune mechanism complicating childbirth (principal); O98.52 Other viral diseases complicating childbirth; Z37.0 Single live birth; B00.9 Herpesviral infection, unspecified; D69.6 Thrombocytopenia, unspecified; Z3A.39 39 weeks gestation of pregnancy; O99.89 Other specified diseases and conditions complicating pregnancy, childbirth and the puerperium; R00.1 Bradycardia, unspecified; O77.0 Labor and delivery complicated by meconium in amniotic fluid; O71.82 Other specified trauma to perineum and vulva
CPT/HCPCS: 36415; 85027; 86780; 86850; 86900; 86901; 87480; 87510; 87660; J2001; J2590; J7512

== ENCOUNTER 2019-07-16 13:28 | Emergency (ER) | payer OTHER ==
[2019-07-16 14:10] LABS: #Basophils 0.1 thou/uL (0.0-0.2); #Eosinphils 0.1 thou/uL (0.0-0.7); #Lymphocytes 2.2 thou/uL (1.20-3.40); #Monocytes 0.7 thou/uL (0.11-0.59); #Neutrophils 6.7 thou/uL (1.40-6.50); %Basophils 0.6 % (0.0-1.0); %Eosinophils 1.2 % (0.0-10.0); %Lymphocytes 22.5 % (21.0-51.0); %Neutrophils 68.7 % (42.0-75.0); Hemoglobin 14.6 g/dL (12.0-16.0); Mean Corpuscular Hemoglobin 30.4 pg (27.0-31.0); Mean Corpuscular Volume 89.4 fL (78.0-98.0); Mean Platelet Volume 9.2 fL (7.4-10.4); Platelet Count 141 thou/uL (130-400); RBC Distribution Width 13.8 % (11.5-14.5); Red Blood Cell (RBC) Count 4.81 mill/uL (4.20-5.40); White Blood Cell (WBC) Count 9.8 thou/uL (4.8-10.8)
[2019-07-16 14:34] LABS: ALT (SGPT) 38 U/L (8-55); AST (SGOT) 24 U/L (5-34); Albumin 3.6 g/dL (3.5-5.0); Alkaline Phosphatase 179 U/L (40-110); Anion Gap 12 mmol/L (10-20); BUN (Urea Nitrogen) 14 mg/dL (7.0-18.7); Bilirubin, Total 0.4 mg/dL (0.2-1.2); Calc. Creatinine Clearance 0 mL/min (70-130); Carbon Dioxide 22 mmol/L (22-29); Chloride 107 mmol/L (98-107); Estimated GFR-MDRD Greater than 90; Globulin 3.3 g/dL (2.4-3.5); Glucose 104 mg/dL (70-105); Potassium 3.9 mmol/L (3.5-5.1); Protein, Total 6.9 g/dL (6.0-8.3); Sodium 137 mmol/L (136-145)
[2019-07-16 14:51] LABS: Bilirubin Negative (Negative); Blood, Urine 2+ (Negative); Clarity Clear (Clear); Glucose, Urine (Dipstick) Normal (Negative); Leukocyte Negative Leu/uL (Negative); Nitrite Negative (Negative); Protein, Urine (Dipstick) 20 mg/dL (Neg-Trace); Urobilinogen Normal mg/dL (Less than 2)
[2019-07-16 14:59] LABS: Bacteria/HPF None Seen HPF (None Seen); RBC/HPF 0-3 HPF (0-3); Squamous Epithelial 0-3 HPF (0-3); WBC/HPF None Seen HPF (0-3)
[2019-07-16 15:17] LABS: Creatinine, Urine 70.93 mg/dL (47-110)
[2019-07-16] MEDS ORDERED: Morphine 4 MG/ML VIAL ONE (15:25)
[2019-07-16] MEDS ORDERED: Acetaminophen 325 MG TAB ONE ×2 (15:33→15:34)
[2019-07-16] MEDS ORDERED: Promethazine HCl 25 MG/ML VIAL IM PRN (18:43)
[2019-07-16] MEDS ORDERED: Acetaminophen 500 MG TAB PO PRN (18:43)
[2019-07-16] MEDS ORDERED: Calcium Gluconate 4.6 MEQ in Sodium Chloride 0.9% 100 ML IVPB PRN (18:43)
[2019-07-16] MEDS ORDERED: Ondansetron PF 4 MG/2 ML Vial IVP PRN (18:43)
[2019-07-16] MEDS ORDERED: hydrALAZINE 20 MG/ML VIAL SLOW IVP PRN (18:43)
[2019-07-16] MEDS ORDERED: Lactated Ringer's 1,000 ML IV SCH (18:45)
[2019-07-16] MEDS ORDERED: Magnesium Sulfate 20 gm/500 ml 20 GM/500 ML BAG IVPB SCH (20:00)
[2019-07-16] MEDS ORDERED: Magnesium Sulfate 20 GM/WATER 500 ML BAG IVPB SCH (20:00)
== END 2019-07-16 15:25 | disposition home or self-care (01) ==
LOC: ERS 13:28
DX: O99.89 Other specified diseases and conditions complicating pregnancy, childbirth and the puerperium (principal); R03.0 Elevated blood-pressure reading, without diagnosis of hypertension
CPT/HCPCS: 36415; 80053; 81003; 81015; 82570; 84156; 85025; J2270

== ENCOUNTER 2019-07-16 15:58 | Inpatient (IN) | payer OTHER ==
--- NOTE | 2019-07-16 16:49 | PDOC.FPROB ---
FMR OB H&P: HPI - History of Present Illness Chief Complaint: elevate BP History of Present Illness: 28 yoAAF who delivered a male infant (07/10/2019) via at 39.1 without complications. No history of pre-E. She was evaluated several times throughout her for pre-eclampsia. Over the last few days she has noted lower extremity edema that has been present since before delivery and a headache that has also been present since about 28weeks gestation. She did have several severe range pressures documented during her delivery and course. She was seen in clinic today and her BP was 150/80s associated with headache. Denies visual changes, SOB, CP, RUQ pain, nausea or vomiting. FMR OB H&P: Current - Care : 6 Para: [id number] Due date: Delivered 07/10/19 FMR OB H&P: History - Past Medical History PMH: None - OB History OB History: 2 spontaneous AB, 1 elective - Surgical History Sx History: None - Social History Social History: Denies alcohol, tobacco, and illicit drug use. FMR OB H&P: Medications - Current Home Medications: Medication Instructions Recorded Confirmed Type valACYclovir HCl [valACYclovir] 1 tab PO BID 07/05/19 07/16/19 History Ibuprofen [Motrin] 800 mg PO Q8HR #30 tab 07/12/19 07/16/19 Rx Vitamin 1 tab PO DAILY tab 07/12/19 07/16/19 Rx Acetaminophen [Tylenol Extra 500 mg PO Q6H PRN tab 07/17/19 Rx Strength] Vitamin 1 tab PO DAILY tab 07/17/19 Rx Allergies/Adverse Reactions: Allergies Allergy/AdvReac Type Severity Reaction Status Date / Time No Known Allergies Allergy Verified 07/16/19 17:22 FMR OB H&P: ROS - Review of Systems General: denies: fever/chills, weight/appetite/sleep changes Eyes: denies: eye pain, vision changes, double vision, scotomas ENT: denies: nasal congestion, rhinorrhea Cardiovascular: reports: edema. 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 denies: dysuria, hematuria, vaginal discharge Neurologic: denies: numbness, syncope, seizures Integumentary: denies: itching, rash, lesions Psychological: denies: depression, anxiety FMR OB H&P: Vital Signs - Maternal Vital signs: BP 120s/70s on L&D. In ED: 136/89, Pulse: 71, Resp: 16 (Non-Labored), Temp: 98.4 (Oral), Pain: 7, O2 sat: 96 on Room Air, Time: 07/16/2019 15:35. 155/97, Pulse: 103, Resp: 18, Temp: 99.2 (Oral), Pain: 7, O2 sat: 98 on Room Air , Time: 07/16/2019 13:29. FMR OB H&P: Physical Exam - Physical Exam General: NAD, awake, alert and oriented HEENT: normocephalic and atraumatic, PERRLA, EOMI, MMM, conjunctiva clear, grossly normal vision, grossly normal hearing Neck: supple, trachea midline Breast: symmetric Heart: RRR, normal S1/S2, no murmurs/rubs/gallops, pulses present Deviation from normal: non-pitting edema in the ankles bilaterally General: CTAB, no respiratory distress, good air movement, no rales/rhonchi, no wheezing Abdomen: soft, non-tender, bowel sound present Musculoskeletal: normal gait and station, pulses present, FROM in all four extremities Skin: no rash, good tugor, capillary refill <2 seconds Lymphatic: no unusual bruising or bleeding, no purpura, no petechia Psychiatric: intact recent and remote memory, good judgement and insight FMR OB H&P: Results - Labs Lab results: Laboratory Tests 07/16/19 14:02 WBC 9.8 Hgb 14.6 Hct 43.0 Plt Count 141 Laboratory Tests 07/16/19 07/16/19 07/16/19 14:02 14:36 14:36 Sodium 137 Potassium 3.9 Chloride 107 Carbon Dioxide 22 Anion Gap 12 BUN 14 Creatinine 0.77 Estimated GFR (MDRD) Greater than 90 Glucose 104 Calcium 10.0 Total Bilirubin 0.4 AST 24 ALT 38 Alkaline Phosphatase 179 H Serum Total Protein 6.9 Albumin 3.6 Globulin 3.3 Albumin/Globulin Ratio 1.1 L Urine Color Light-Yellow Urine Clarity Clear Urine pH 6.5 Ur Specific [place] 1.020 Urine Protein 20 Urine Glucose (UA) Normal Urine Ketones Negative Urine Blood 2+ A Urine Nitrite Negative Urine Bilirubin Negative Urine Urobilinogen Normal Ur Leukocyte Esterase Negative Urine RBC 0-3 Urine WBC None Seen Ur Squamous Epith Cells 0-3 Urine Bacteria None Seen U Random Total Protein 28 H Urine Creatinine 70.93 FMR OB H&P: A/P - Problem List (1) Pre-eclampsia, Status: Acute Code(s): O14.95 - UNSPECIFIED PRE-ECLAMPSIA, COMPLICATING THE PUERPERIUM Disposition: Stable Discussion: Date/Time: 07/16/19 8118 1. Pre-eclampsia Labs done in ED revealed Urine Pro:cr ratio 0.4. Pressure was 155/97 on arrival , after an elevated pressure in clinic. However since that time has been below 140/90. She had several severe range pressures during antepartum. We will admit for monitoring of blood pressures overnight and magnesium protocol. Give 1 dose of lasix for diuresis. Hydralazine prn for SBP > 180. 2. day 6 Recommend breast pumping while hospitalized to maintain milk supply Vaginal bleeding is lessening. Recovering well. This H&P was discussed with Dr. Grijalva and Dr. Corbin who agree with the above documentation and plan. UL Addendum: PCP: [facility] HPI: 28YO who is 6 days s/p a at 39.1 weeks without complications who presented for evaluation from [facility] this afternoon after having BPs in the 150s systolic with an associated headache. The patient has no official diagnosis or history of pre-E but was evaluated several times throughout her for it. Over the last few days she reports worsening lower extremity edema but states the edema has been present since before delivery. She also reports a headache that has also been present since about 28 weeks gestation. She denies visual changes, SOB, CP, RUQ pain, nausea or vomiting. History: OB hx: 2 spontaneous AB & 1 elective AB PMH: neg PSH: neg Meds: PNV All: NKDA Soc Hx: denies smoking, alcohol, drugs Fam Hx: Sister- pre-e REVIEW OF SYSTEMS: 12 point ROS negative except what was mentioned in HPI. Vitals: BP: 136/89, Pulse: 71, Resp: 16 (Non-Labored), Temp: 98.4F (Oral), Pain : 7, O2 sat: 96 on Room Air PHYSICAL EXAMINATION: General: NAD, alert and oriented x3 HEENT: EOMI, normal sclera Neck: Supple. Full ROM. Heart/Cardiovascular System: RRR, Cap refill < 3 seconds, no rub, no murmur Lungs/Respiratory System: No increased work of breathing. Room air. Abdomen/Gastro-Intestinal System: soft, no abdominal tenderness Extremities: Warm extremities. No cyanosis but non-pitting edema in B/L ankles. Neuro: No focal deficits appreciated. 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 Psychiatry: Awake, Alert and cooperative with exam Skin: No lesions, rashes Musculoskeletal: Full ROM in all extremities A/P: This is a 28yo who is day #6 presenting for an evaluation for suspected pre-eclampsia. # Pre-eclampsia - Labs done in ED notable for a urine Pro:cr ratio 0.4 & BP was 155/97 on arrival after an elevated pressure in clinic. Plts WNLs & LFTs normal with exception of elevated alk phos of 179. - BPs have been <140/90 since initial elevated pressure but she had several severe range pressures during antepartum per chart review. - We therefore admit for monitoring of blood pressures overnight and initiate magnesium therapy per protocol & continue for 24hours. Mg checks Q4H. - Hydralazine prn for SBP > 160. # day 6 s/p - Will continue breast pumping while hospitalized to maintain milk supply - Continue PNVs Addendum - Attending - Attending Attestation Date/Time: 07/16/19 1804 I personally evaluated the patient and discussed the management with Dr. Kaur and Dr. Grijalva I agree with the History, Examination, Assessment and Plan documented above with any addition or exceptions noted below. Patient noted to have several mild to severe range blood pressure intrapartum and thrombocytopenia. No ppx provided. BP improved pp. Patient remained asymptomatic. Seen for pp visit earlier today. Noted to have several mild range BP, headache, and significant LE edema. Patient noted to have occasional mild range BP on monitoring. Labs today demonstrate improved platelet count but pro/cr ratio 0.4. Will admit for 12 to 24 hours of mag ppx. Due to significant LE edema add BNP. Give lasix. Monitor BP. Repeat labs in AM. Treat severe range and add oral agent for blood pressure if mild range BP persist. Demetria
[2019-07-16 17:26] VITALS: BMI 31.7
[2019-07-16] MEDS ORDERED: FLU VACC QS2019-20(6MOS UP)/PF 60 MCG/0.5 ML SYRINGE IM ONE (17:45)
[2019-07-16] MEDS ORDERED: hydrALAZINE 20 MG/ML VIAL SLOW IVP PRN (18:15)
[2019-07-16] MEDS ORDERED: Furosemide 20 MG TAB PO SCH (18:30)
[2019-07-16] MEDS: Lactated Ringer's 1,000 ML IV SCH (19:30)
[2019-07-16] MEDS: Magnesium Sulfate 20 gm/500 ml 20 GM/500 ML BAG IVPB SCH (19:48)
[2019-07-16] MEDS ORDERED: Promethazine HCl 25 MG/ML VIAL IM PRN (20:41)
[2019-07-16] MEDS ORDERED: Calcium Gluconate 4.6 MEQ in Sodium Chloride 0.9% 100 ML IVPB PRN (20:41)
[2019-07-16] MEDS ORDERED: Ondansetron PF 4 MG/2 ML Vial IVP PRN (20:41)
[2019-07-16] MEDS ORDERED: Magnesium Sulfate 20 GM/WATER 500 ML BAG IVPB SCH (20:45)
--- NOTE | 2019-07-17 00:29 | PDOC.OBMPN ---
FMR OB LDICU PN: Subj - Interval History Hospital Day: 2 Chief Complaint: No complaint offered Interval History: Pt has no concerns. Denies SOB, chest pain. Denies weakness FMR OB LDICU PN: Obj - Maternal Vital signs: BP ranging from 120-140 systolic. No severe range pressure noted - Urine output I&O: 100-200 an hour FMR OB LDICU PN: Exam - Physical Exam General: NAD, awake, alert and oriented HEENT: normocephalic and atraumatic, grossly normal vision, grossly normal hearing Heart: RRR, normal S1/S2, no murmurs/rubs/gallops, pulses present General: CTAB, no respiratory distress, good air movement, no rales/rhonchi, no wheezing Abdomen: soft, non-tender Musculoskeletal: FROM in all four extremities Neurological: sensation to pain,touch and proprioception grossly normal, DTR +2 Psychiatric: normal mood and affect FMR OB LDICU PN: Data - Labs Lab results: Laboratory Results - last 24 hr 07/16/19 20:57 Magnesium 4.0 H FMR OB LDICU PN:A/P - Problem List (1) Pre-eclampsia, Current Visit: Yes Status: Acute Code(s): O14.95 - UNSPECIFIED PRE-ECLAMPSIA , COMPLICATING THE PUERPERIUM Disposition: 28 yoAAF who delivered a male (07/10/2019) via at 39.1 without complications. 1. Pre-eclampsia Labs done in ED revealed Urine Pro:cr ratio 0.4. Pressure was 155/97 on arrival , after an elevated pressure in clinic. However since that time has been below 140/90. She had several severe range pressures during antepartum. -No severe range pressures noted. Pt doing well. No complaints -Will continue magnesium w/ q4 hr accuchecks -Urine output 100-200 an hour 2. day 7 Recommend breast pumping while hospitalized to maintain milk supply Vaginal bleeding is lessening. Recovering well. Discussion: Date/Time: 07/17/19 0027 This H&P was discussed with [] and [] who agree with the above documentation and plan.
[2019-07-17] MEDS: Lactated Ringer's 1,000 ML IV SCH ×2 (03:53→16:32)
[2019-07-17] MEDS: Acetaminophen 500 MG TAB PO PRN ×2 (04:13→12:10)
[2019-07-17] MEDS: Magnesium Sulfate 20 gm/500 ml 20 GM/500 ML BAG IVPB SCH (04:13)
--- NOTE | 2019-07-17 04:39 | PDOC.OBMPN ---
[facility] OB LDICU PN: Subj - Interval History Hospital Day: 2 Chief Complaint: Reports having headache Interval History: Pt denies any SOB, chest pain, Reports having headache R OB LDICU PN: Obj - Maternal Vital signs: BP Ranging from 120-130's systolic - Urine output I&O: 200-300 every hour patient has been averaging R OB LDICU PN: Exam - Physical Exam General: NAD, awake, alert and oriented HEENT: normocephalic and atraumatic, grossly normal vision, grossly normal hearing Heart: RRR, normal S1/S2, no murmurs/rubs/gallops, pulses present, no edema General: CTAB, no respiratory distress, good air movement, no rales/rhonchi, no wheezing Abdomen: soft, non-tender, bowel sound present Neurological: sensation to pain,touch and proprioception grossly normal, DTR +2 Skin: no rash Lymphatic: no unusual bruising or bleeding R OB LDICU PN: Data - Labs Lab results: Laboratory Results - last 24 hr 07/16/19 20:57 Magnesium 4.0 H [facility] OB LDICU PN:A/P - Problem List (1) Pre-eclampsia, Current Visit: Yes Status: Acute Code(s): O14.95 - UNSPECIFIED PRE-ECLAMPSIA , COMPLICATING THE PUERPERIUM Disposition: 28 yoAAF who delivered a male (07/10/2019) via at 39.1 without complications. 1. Pre-eclampsia Labs done in ED revealed Urine Pro:cr ratio 0.4. Pressure was 155/97 on arrival , after an elevated pressure in clinic. However since that time has been below 140/90. She had several severe range pressures during antepartum. -No severe range pressures noted. Pt doing well. No complaints -Will continue magnesium w/ q4 hr accuchecks -Urine output 200-300 hr 2. day 7 Recommend breast pumping while hospitalized to maintain milk supply Vaginal bleeding is lessening. Recovering well. Discussion: Date/Time: 07/17/19 0437 This H&P was discussed with [] and [] who agree with the above documentation and plan.
--- NOTE | 2019-07-17 08:09 | PDOC.OBMPN ---
"[facility] OB LDICU PN: Subj - Interval History Hospital Day: 2 Chief Complaint: Elevate BP in clinic / Headach Indentification: 28 Bob Gill who delivered a male infant (07/10/2019) via at 39.1wk Interval History: She is doing ok this morning. She complains of headache and nausea. [facility] OB LDICU PN: Obj - Maternal Vital signs: See A/P for BP readings. [facility] OB LDICU PN: Exam - Physical Exam General: NAD, awake, alert and oriented HEENT: normocephalic and atraumatic, PERRLA, EOMI, MMM, conjunctiva clear, grossly normal vision, grossly normal hearing Neck: supple, trachea midline Chest: non-tender to palpation Breast: symmetric Heart: RRR, normal S1/S2, no murmurs/rubs/gallops General: CTAB, no respiratory distress, good air movement Abdomen: soft, non-tender, bowel sound present Neurological: cranial nerves II through XII intact, sensation to pain,touch and proprioception grossly normal, DTR +2, no clonus, no tremor, no focal deficit Skin: no rash, good tugor Lymphatic: no unusual bruising or bleeding, no petechia Psychiatric: intact recent and remote memory [facility] OB LDICU PN: Data - Labs Lab results: Laboratory Results - last 24 hr 07/16/19 20:57 Magnesium 4.0 H [facility] OB LDICU PN:A/P - Problem List (1) Pre-eclampsia, Status: Acute Code(s): O14.95 - UNSPECIFIED PRE-ECLAMPSIA, COMPLICATING THE PUERPERIUM Discussion: Date/Time: 07/17/19 0809 28 Bob Gill who delivered a male infant (07/10/2019) via at 39.1 without complications. 1. Pre-eclampsia BP Trend: 141/73 | 116/78 | 131/76 | 121/58 | 132/86 | 110/77 | 117/64 | 116/66 [from 23:04 07/16/19 until 07:00 07/17/19] She had several severe range pressures during antepartum and again yesterday and her clinic follow up appt. No severe range pressures noted. Pt doing well. Complains of headache, which has been unchanged. Will continue magnesium w/ q4 hr accuchecks. Mg was started at 19:45 on 2018. Urine output 200-300 hr 2. day 7 Recommend breast pumping while hospitalized to maintain milk supply Vaginal bleeding is lessening. Recovering well. This H&P was discussed with Drs. Corbin and Dejah who agree with the above documentation and plan. Addendum - Attending - Attending Attestation Date/Time: 07/17/19 1004 I personally evaluated the patient and discussed the management with Dr. Kaur I agree with the History, Examination, Assessment and Plan documented above with any addition or exceptions noted below. Doing well on mag. BP WNL. No severe range. Labs unchanged. Patient asymptomatic. Edema improved with lasix. Continue mag ppx at this time. Consider adding diet this afternoon if remains stable and without concern for progression to eclampsia. Demetria"
[2019-07-17] MEDS ORDERED: Prenatal Vitamin 1 TAB PO SCH (09:00)
--- NOTE | 2019-07-17 12:03 | PDOC.OBMPN ---
"FMR OB LDICU PN: Subj - Interval History Hospital Day: 2 Chief Complaint: elevated bp / headache Indentification: 28 yoNENITA Gill who delivered a male (07/10/2019) via at 39.1wk Interval History: She is doing well. Headache is about the same, but is relieved with tylenol FMR OB LDICU PN: Obj - Maternal Vital signs: See plan for BP documentation - Urine output I&O: 200-300q hour FMR OB LDICU PN: Exam - Physical Exam General: NAD, awake, alert and oriented HEENT: normocephalic and atraumatic, PERRLA, EOMI, MMM, conjunctiva clear, grossly normal vision, grossly normal hearing Neck: supple, trachea midline Breast: symmetric Heart: RRR, normal S1/S2, no murmurs/rubs/gallops, pulses present, no edema General: CTAB, no respiratory distress, good air movement, no rales/rhonchi, no wheezing Abdomen: soft, non-tender Neurological: cranial nerves II through XII intact, sensation to pain,touch and proprioception grossly normal, DTR +2, strength +3, no clonus, no tremor, no focal deficit Skin: no rash, good tugor FMR OB LDICU PN: Data - Labs Lab results: Laboratory Results - last 24 hr 07/16/19 20:57 Magnesium 4.0 H R OB LDICU PN:A/P - Problem List (1) Pre-eclampsia, Status: Acute Code(s): O14.95 - UNSPECIFIED PRE-ECLAMPSIA, COMPLICATING THE PUERPERIUM Disposition: Stable Discussion: Date/Time: 07/17/19 1203 28 Bob Gill who delivered a male infant (07/10/2019) via at 39.1 without complications. 1. Pre-eclampsia BP Trend: 117/633 | 92/49 | 129/75 | 161/82 @1000 | 129/81 | 130/82 | [from [id number] 07/17/19] She had several severe range pressures during antepartum and again yesterday and her clinic follow up appt. One severe range systolic pressure. Pt doing well. Complains of headache, which has been unchanged and is relieved by Tylenol. Mg was started at 19:45 on 07/16/2019. Recent Mg level was 4.0 which is slightly subtherapeutic. Will plan for Mg for 24 hours, however it depends on her clinical course. Urine output 200-300 hr 2. day 7 Recommend breast pumping while hospitalized to maintain milk supply Vaginal bleeding is lessening. Recovering well. This H&P was discussed with Drs. Corbin and Dejah who agree with the above documentation and plan Addendum - Attending - Attending Attestation Date/Time: 07/17/19 2666 I personally evaluated the patient and discussed the management with Dr. Kaur I agree with the History, Examination, Assessment and Plan documented above with any addition or exceptions noted below. Continues to do well. No severe range BP. Rare mild range BP. Asymptomatic. Will allow diet. Low risk for seizure. Will likely stop mag after 12 to 20 hours. Demetria"
[2019-07-17] MEDS ORDERED: Furosemide 40 MG/4 ML VIAL SLOW IVP SCH (13:30)
[2019-07-17 13:51] LABS: ALT (SGPT) 37 U/L (8-55); AST (SGOT) 31 U/L (5-34); Albumin 3.9 g/dL (3.5-5.0); Alkaline Phosphatase 155 U/L (40-110); Anion Gap 13 mmol/L (10-20); BUN (Urea Nitrogen) 8 mg/dL (7.0-18.7); Bilirubin, Total 0.4 mg/dL (0.2-1.2); Calc. Creatinine Clearance 159 mL/min (70-130); Calcium 8.7 mg/dL (7.8-10.44); Carbon Dioxide 23 mmol/L (22-29); Chloride 102 mmol/L (98-107); Estimated GFR-MDRD Greater than 90; Globulin 3.4 g/dL (2.4-3.5); Glucose 93 mg/dL (70-105); Potassium 3.9 mmol/L (3.5-5.1); Protein, Total 7.3 g/dL (6.0-8.3); Sodium 134 mmol/L (136-145)
--- NOTE | 2019-07-17 17:06 | PDOC.OBMPN ---
[facility] OB LDICU PN: Subj - Interval History Hospital Day: 1 Chief Complaint: severe range bp Indentification: 28 yoAAF Interval History: who delivered a male infant (07/10/2019) via at 39.1 wks [facility] OB LDICU PN: Exam - Physical Exam General: NAD HEENT: normocephalic and atraumatic Heart: RRR, normal S1/S2 General: CTAB, no respiratory distress Neurological: DTR +2, no focal deficit Skin: no rash, good tugor, capillary refill <2 seconds Lymphatic: no unusual bruising or bleeding Psychiatric: intact recent and remote memory [facility] OB LDICU PN: Data - Labs Lab results: Laboratory Results - last 24 hr 07/16/19 07/17/19 07/17/19 20:57 13:17 13:17 Sodium 134 L Potassium 3.9 Chloride 102 Carbon Dioxide 23 Anion Gap 13 BUN 8 Creatinine 0.69 Estimated GFR (MDRD) Greater than 90 Glucose 93 Calcium 8.7 Magnesium 4.0 H Total Bilirubin 0.4 AST 31 ALT 37 Alkaline Phosphatase 155 H B-Natriuretic Peptide Less than 10.0 Serum Total Protein 7.3 Albumin 3.9 Globulin 3.4 Albumin/Globulin Ratio 1.1 L [facility] OB LDICU PN:A/P - Problem List (1) Pre-eclampsia, Status: Acute Code(s): O14.95 - UNSPECIFIED PRE-ECLAMPSIA, COMPLICATING THE PUERPERIUM Discussion: Date/Time: 07/17/191703 28 yoAAF who delivered a male infant (07/10/2019) via at 39.1 without complications. 1. Pre-eclampsia BP Trend:109-130/56-81 Mg was started at 19:45 on 07/16/2019. Urine output 200-300 hr Will dc mag now Will evaluate bp's for 12-24 hours and dc pending bp control Addendum - Attending - Attending Attestation Date/Time: 07/17/191726 I personally evaluated the patient and discussed the management with Dr. Joe Reyes I agree with the History, Examination, Assessment and Plan documented above with any addition or exceptions noted below. Patient has been doing very well. No concerns for seizure. Ok to d/c mag. Will monitor over the next 4 to 6 hours off mag. Edema even more improved with second dose of lasix. Will consider early d/c due to child care coordinator issues. Patient reliable. Has BP monitor at home and willing to return if symptom present or BP remains high. Demetria
[2019-07-17 19:02] VITALS: BP 131/86; TEMP 98.5
--- NOTE | 2019-07-17 20:05 | PDOC.OBPPN ---
FMR OB PN: Subj - Interval History Hospital Day: 2 Day: 6 Chief Complaint: None offered FMR OB PN: Obj - Maternal Vital signs: BP: BP was 132/72 - Pain Management Pain scale: 0 FMR OB PN: Exam - Physical Exam General: NAD, awake, alert and oriented HEENT: normocephalic and atraumatic, PERRLA, grossly normal vision, grossly normal hearing Neck: supple, trachea midline Heart: RRR, normal S1/S2, no murmurs/rubs/gallops, no edema General: CTAB, no respiratory distress, good air movement, no rales/rhonchi, no wheezing Abdomen: soft, non-tender Musculoskeletal: FROM in all four extremities Neurological: sensation to pain,touch and proprioception grossly normal, DTR +2 Skin: no rash Psychiatric: normal mood and affect FMR OB PN: Data - Labs Lab results: Laboratory Results - last 24 hr 07/16/19 07/17/19 07/17/19 20:57 13:17 13:17 Sodium 134 L Potassium 3.9 Chloride 102 Carbon Dioxide 23 Anion Gap 13 BUN 8 Creatinine 0.69 Estimated GFR (MDRD) Greater than 90 Glucose 93 Calcium 8.7 Magnesium 4.0 H Total Bilirubin 0.4 AST 31 ALT 37 Alkaline Phosphatase 155 H B-Natriuretic Peptide Less than 10.0 Serum Total Protein 7.3 Albumin 3.9 Globulin 3.4 Albumin/Globulin Ratio 1.1 L FMR OB PN: A/P - Problem List (1) Pre-eclampsia, Status: Acute Code(s): O14.95 - UNSPECIFIED PRE-ECLAMPSIA, COMPLICATING THE PUERPERIUM Disposition: Pt just recently was transferred to [facility] floor after finishing 24 hr course of Mg for Post Pre-E. Pt has no complaints. Denies any headaches or vision changes. Swelling in feet is better. Denies any chest pain or SOB. Usually we recommend 24 hours obs and BP checks post Mg tx. Yet, pt is in the room with her children. There is no other adult present. Per hospital policy the patient cannot supervise children w/o another adult there. Pt states she has no one who can watch her kids. Pt states having Bp cuff at home. Discussed with her to check BP every 4 hours over the next day. Discussed to return if she notices BP in 150's or starts having severe range pressures in 160's. Discussed ER precautions. Pt understood. Pt would be amenable to staying but at this time has no one to watch her kids and at this time we agreed it would be safe to discharge home. Discussion: Date/Time: 07/17/192004 This H&P was discussed with [] and [] who agree with the above documentation and plan. Addendum - Attending - Attending Attestation Date/Time: 07/17/192030 I personally evaluated the patient and discussed the management with Dr. Ivory I agree with the History, Examination, Assessment and Plan documented above with any addition or exceptions noted below. Patient has been without symptoms. No evidence or concerns for seizure. Has been off mag for 4 hours. Good diuresis. Edema improved. No evidence of heart dz. No evidence of renal dz. Patient to follow up on Saturday. ER precautions discussed. Ok to d/jaquan [place]
== END 2019-07-17 20:50 | disposition home or self-care (01) | DRG 776 ==
LOC: L&D/OP 15:58 → L&D 20:53 → 3SW 07-17 18:44
PROVIDERS: ADMIT Family Medicine; ATTEND Family Medicine
DX: O14.95 Unspecified pre-eclampsia, complicating the puerperium (principal); O72.3 Postpartum coagulation defects
CPT/HCPCS: 36415; 80053; 81003; 81015; 82570; 83735; 83880; 84156; 85025; 99283; J2270; J3475

== ENCOUNTER 2019-10-23 21:23 | Emergency (ER) | payer OTHER, SELFPAY | END 2019-10-23 22:33 | disposition home or self-care (01) | LOC: ERS 21:23 | DX: J11.1 Influenza due to unidentified influenza virus with other respiratory manifestations (principal) | CPT/HCPCS: 87804; 99283 ==

== ENCOUNTER 2020-03-21 22:04 | Emergency (ER) | payer OTHER, SELFPAY | END 2020-03-21 23:20 | disposition home or self-care (01) | LOC: ERS 22:04 | DX: Z20.828 Contact with and (suspected) exposure to other viral communicable diseases (principal); R50.9 Fever, unspecified | CPT/HCPCS: 87635; 99283; U0003 ==

== ENCOUNTER 2021-06-22 12:51 | Emergency (ER) | payer SELFPAY ==
[2021-06-22 13:32] LABS: #Basophils 0.1 thou/uL (0.0-0.2); #Eosinphils 0.1 thou/uL (0.0-0.7); #Lymphocytes 2.1 thou/uL (1.20-3.40); #Monocytes 0.4 thou/uL (0.11-0.59); #Neutrophils 4.1 thou/uL (1.40-6.50); %Basophils 0.9 % (0.0-1.0); %Eosinophils 1.3 % (0.0-10.0); %Lymphocytes 31.1 % (21.0-51.0); %Neutrophils 60.7 % (42.0-75.0); Hemoglobin 15.3 g/dL (12.0-16.0); Mean Corpuscular HGB CONC 31.7 g/dL (32.0-36.0); Mean Corpuscular Hemoglobin 27.1 pg (27.0-31.0); Mean Corpuscular Volume 85.5 fL (78.0-98.0); Mean Platelet Volume 9.2 fL (7.4-10.4); Platelet Count 187 thou/uL (130-400); RBC Distribution Width 13.2 % (11.5-14.5); Red Blood Cell (RBC) Count 5.64 mill/uL (4.20-5.40); White Blood Cell (WBC) Count 6.7 thou/uL (4.8-10.8)
[2021-06-22 13:33] LABS: Pregnancy Test - Urine (BHCG) Negative (Negative); Pregu Control Background? CLEAR/WHITE (CLR/WHITE); Pregu Control Bar Appear? YES (CONTROL BAR); Specific Gravity 1.033 (1.002-1.036)
[2021-06-22 13:35] LABS: Bilirubin Negative (Negative); Blood, Urine Negative (Negative); Clarity Clear (Clear); Glucose, Urine (Dipstick) Normal (Negative); Ketone, Urine Negative (Negative); Leukocyte 250 Leu/uL (Negative); Nitrite Negative (Negative); Protein, Urine (Dipstick) 30 mg/dL (Neg-Trace); Specific Gravity, Urine 1.033 (1.002-1.036); Urobilinogen Normal mg/dL (Less than 2); pH, Urine 5.5 (5.0-9.0)
[2021-06-22 13:36] LABS: Bacteria/HPF 3+ HPF (None Seen)
[2021-06-22 13:53] LABS: ALT (SGPT) 12 U/L (8-55); AST (SGOT) 16 U/L (5-34); Albumin 4.2 g/dL (3.5-5.0); Alkaline Phosphatase 85 U/L (40-110); Anion Gap 15 mmol/L (10-20); BUN (Urea Nitrogen) 13 mg/dL (7.0-18.7); Bilirubin, Total 0.5 mg/dL (0.2-1.2); Calc. Creatinine Clearance 0 mL/min (70-130); Calcium 9.4 mg/dL (7.8-10.44); Carbon Dioxide 20 mmol/L (22-29); Chloride 108 mmol/L (98-107); Globulin 3.4 g/dL (2.4-3.5); Glucose 96 mg/dL (70-105); Potassium 3.7 mmol/L (3.5-5.1); Protein, Total 7.6 g/dL (6.0-8.3); Sodium 139 mmol/L (136-145)
[2021-06-22] MEDS ORDERED: Ketorolac Tromethamine 30 MG/ML VIAL ONE (14:23)
[2021-06-22 14:37] LABS: Bilirubin Negative (Negative); Blood, Urine Negative (Negative); Clarity Clear (Clear); Glucose, Urine (Dipstick) Normal (Negative); Ketone, Urine Negative (Negative); Leukocyte 75 Leu/uL (Negative); Nitrite Negative (Negative); Protein, Urine (Dipstick) 20 mg/dL (Neg-Trace)
[2021-06-22 14:38] LABS: Bacteria/HPF 2+ HPF (None Seen)
[2021-06-22] MEDS ORDERED: cefTRIAXone\\ROCEPHIN 500 MG VIAL ONE (15:07)
[2021-06-22] MEDS ORDERED: Lidocaine 1% PF 5 ML VIAL ONE (15:07)
[2021-06-26 16:48] LABS: Chlamydia by PCR Not Detected (NotDetected); GC by PCR Not Detected (NotDetected)
== END 2021-06-22 15:24 | disposition home or self-care (01) ==
LOC: ERS 12:51
DX: N72 Inflammatory disease of cervix uteri (principal)
CPT/HCPCS: 51701; 80053; 81003; 81015; 81025; 85025; 87077; 87086; 87186; 87480; 87491; 87510; 87591; 87660; 96372; 96374; J0696; J1885

== ENCOUNTER 2021-09-19 17:50 | Emergency (ER) | payer SELFPAY ==
[2021-09-19] MEDS ORDERED: Ketorolac Tromethamine 30 MG/ML VIAL ONE (20:37)
[2021-09-20 11:32] LABS: SARS-CoV-2 PCR by NAA Not Detected (NotDetected)
[2021-09-20] MEDS ORDERED: Lorazepam 2 MG/ML VIAL ONE (13:43)
== END 2021-09-19 21:05 | disposition home or self-care (01) ==
LOC: ERS 17:50
DX: B34.9 Viral infection, unspecified (principal); Z20.822 Contact with and (suspected) exposure to COVID-19
CPT/HCPCS: 87804; 96372; 99284; J1885; J2060; U0003; U0005